=== PATIENT | male | born 1965 | race Two or more races ===

== ENCOUNTER 2016-07-02 09:46 | Inpatient (IN) | payer OTHER ==
[2016-07-02 10:25] VITALS: BMI 24.7
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
[2016-07-02] MEDS ORDERED: diphenhydrAMINE HCL 50 MG CAPSULE PO PRN (12:11)
[2016-07-02] MEDS ORDERED: MENTHOL/PHENOL 1 EACH UD MM PRN (12:11)
[2016-07-02] MEDS ORDERED: hydrOXYzine PAMOATE 25 MG CAPSULE (FP) PO PRN (12:11)
[2016-07-02] MEDS ORDERED: guaiFENesin/D-METHORPHAN HB 10 ML UNIT-DOSE CUPS PO PRN (12:11)
[2016-07-02] MEDS ORDERED: P-EPHED 60MG/TRIPROLIDI 2.5MG TABLET PO PRN (12:11)
[2016-07-02] MEDS ORDERED: MAGNESIUM CITRATE 300 ML BOTTLE PO PRN (12:11)
[2016-07-02] MEDS ORDERED: MAGNESIUM HYDROX 2400MG/30ML ORAL SUSPENSION 30 ML CUP PO PRN (12:11)
[2016-07-02] MEDS ORDERED: chlordiazePOXIDE HCL 25 MG CAPSULE PO PRN (12:11)
[2016-07-02] MEDS ORDERED: NICOTINE POLACRILEX 2 MG GUM BUC PRN (12:11)
[2016-07-02] MEDS ORDERED: MAG HYDROX/AL HYDROX/SIMETH 30 ML UNIT-DOSE CUP PO PRN (12:11)
[2016-07-02] MEDS ORDERED: LOPERAMIDE HCL 2 MG CAPSULE PO PRN (12:11)
[2016-07-02] MEDS ORDERED: IBUPROFEN 400 MG TABLET (FP) PO PRN (12:11)
[2016-07-02] MEDS ORDERED: ACETAMINOPHEN 325 MG TABLET (FP) PO PRN (12:11)
[2016-07-02] MEDS ORDERED: METHADONE HCL 10 MG TABLET (FOR DETOX USE ONLY) PO ONE ×2 (12:25→23:00)
[2016-07-02] MEDS: NICOTINE 14 MG/24 HOURS TOPICAL PATCH TD SCH (13:36)
[2016-07-02 14:21] LABS: HIV 1 & 2 AB NEGATIVE; HIV 1 AGp24 NEGATIVE
[2016-07-02] MEDS: chlordiazePOXIDE HCL 25 MG CAPSULE PO SCH ×2 (17:13→22:35)
[2016-07-02] MEDS: THIAMINE HCL 100 MG TABLET (FP) PO SCH (22:35)
[2016-07-03 04:08] LABS: URINE APPEARANCE CLEAR; URINE BILIRUBIN NEGATIVE (NEGATIVE); URINE BLOOD NEGATIVE (NEGATIVE); URINE COLOR DKYELLOW; URINE GLUCOSE (UA) NEGATIVE (NEGATIVE); URINE KETONE NEGATIVE (NEGATIVE); URINE LEUK ESTERASE NEGATIVE (NEGATIVE); URINE NITRITE NEGATIVE (NEGATIVE); URINE PROTEIN NEGATIVE (NEGATIVE); URINE UROBILINOGEN 2.0 E.U/dl E.U./dl (0.2-1.0)
[2016-07-03] MEDS: chlordiazePOXIDE HCL 25 MG CAPSULE PO SCH ×4 (05:33→22:24)
[2016-07-03] MEDS ORDERED: METHADONE HCL 10 MG TABLET (FOR DETOX USE ONLY) PO SCH (10:00)
[2016-07-03 10:09] LABS: MCHC 33.7 g/dl (32.0-35.9); MEAN CELL VOLUME 86.1 fl (80-96); MEAN PLT VOLUME 10.4 fl (7.5-11.1); PLATELET COUNT 196 K/MM3 (134-434); RDW 13.9 % (11.9-15.9); WHITE BLOOD COUNT 7.5 K/mm3 (4.0-10.0)
--- NOTE | 2016-07-03 10:15 | PN ---
S CIWA - CIWA Score Nausea/Vomitin Muscle Tremors: 3 Anxiety: 3 Agitation: 3 Paroxysmal Sweats: 2 Orientation: 0-Oriented Tacttile Disturbances: 1-Very Mild Itch/Numbness Auditory Disturbances: 1-Very Mild Visual Disturbances: 1-Very Mild Sensitivity Headache: 2-Mild CIWA-Ar Total Score: 19 BHS COWS - Scale Resting Pulse: 0= [place] 80 or Below Sweatin=Flushed/Facial Moisture Restless Observation: 3= Extraneous Movement Pupil Size: 1= Pupils >than Normal Bone or Joint Aches: 2= Severe Diffuse Aches Runny Nose/ Eye Tearin= Runny Nose/Eyes GI Upset > 30mins: 3= Vomiting/Diarrhea Tremor Observation of Outstretched Hands: 1= Tremor [place], Not Seen Yawning Observation: 1= 1-2x During Session Anxiety or Irritability: 2=Irritable/Anxious Goose Flesh Skin: 0=Smooth Skin COWS Score: 17 S Progress Note (SOAP) Subjective: ALERT,IRRITABLE,ANXIUOS,INTERRUPTED SLEEP,PAIN IN THE BODY AND BACK Objective: 07/03/16 10:11 Vital Signs Temperature 98.2 F 07/03/16 09:54 Pulse Rate 68 07/03/16 09:54 Respiratory Rate 18 07/03/16 09:54 Blood Pressure 90/56 07/03/16 09:54 O2 Sat by Pulse Oximetry (%) EKG NSR NORMAL ECG Laboratory Last Values Urine Color Dkyellow 07/03/16 01:00 Urine Appearance Clear 07/03/16 01:00 Urine pH 5.0 (5.0-8.0) 07/03/16 01:00 Ur Specific [place] 1.030 (1.001-1.035) 07/03/16 01:00 Urine Protein Negative (NEGATIVE) 07/03/16 01:00 Urine Glucose (UA) Negative (NEGATIVE) 07/03/16 01:00 Urine Ketones Negative (NEGATIVE) 07/03/16 01:00 Urine Blood Negative (NEGATIVE) 07/03/16 01:00 Urine Nitrite Negative (NEGATIVE) 07/03/16 01:00 Urine Bilirubin Negative (NEGATIVE) 07/03/16 01:00 Urine Urobilinogen 2.0 e.u/dl E.U./dl (0.2-1.0) 07/03/16 01:00 Ur Leukocyte Esterase Negative (NEGATIVE) 07/03/16 01:00 HIV 1&2 Antibody Screen Negative 07/02/16 11:35 HIV P24 Antigen Negative 07/02/16 11:35 Laboratory Last Values Urine Color Dkyellow 07/03/16 01:00 Urine Appearance Clear 07/03/16 01:00 Urine pH 5.0 (5.0-8.0) 07/03/16 01:00 Ur Specific [place] 1.030 (1.001-1.035) 07/03/16 01:00 Urine Protein Negative (NEGATIVE) 07/03/16 01:00 Urine Glucose (UA) Negative (NEGATIVE) 07/03/16 01:00 Urine Ketones Negative (NEGATIVE) 07/03/16 01:00 Urine Blood Negative (NEGATIVE) 07/03/16 01:00 Urine Nitrite Negative (NEGATIVE) 07/03/16 01:00 Urine Bilirubin Negative (NEGATIVE) 07/03/16 01:00 Urine Urobilinogen 2.0 e.u/dl E.U./dl (0.2-1.0) 07/03/16 01:00 Ur Leukocyte Esterase Negative (NEGATIVE) 07/03/16 01:00 HIV 1&2 Antibody Screen Negative 07/02/16 11:35 HIV P24 Antigen Negative 07/02/16 11:35 LABS PENDING Assessment: 07/03/16 10:16 WITHDRAWAL SYMPTOM Plan: CONTINUE DETOX
[2016-07-03 10:26] LABS: ALBUMIN 3.9 g/dl (3.4-5.0); ALK PHOS 76 U/L (45-117); ANION GAP 12 (8-16); BILIRUBIN,TOTAL 0.5 mg/dL (0.2-1.0); CALCIUM 8.6 mg/dL (8.5-10.1); CO2 25 mmol/L (21-32); GLUCOSE,RANDOM 117 mg/dL (74-106); SGOT/AST 18 U/L (15-37); SGPT/ALT 23 U/L (12-78); TOT PROT 7.8 g/dl (6.4-8.2)
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
[2016-07-03] MEDS: PRENATAL VITAMINS W/ FOLIC ACID TABLET (FP) PO SCH (11:10)
[2016-07-03] MEDS: NICOTINE 14 MG/24 HOURS TOPICAL PATCH TD SCH (11:11)
--- NOTE | 2016-07-03 13:44 | EKG ---
Test Reason : Blood Pressure : / mmHG Vent. Rate : 070 BPM Atrial Rate : 070 BPM P-R Int : 138 ms QRS Dur : 086 ms QT Int : 388 ms P-R-T Axes : 068 056 029 degrees QTc Int : 419 ms NORMAL SINUS RHYTHM NORMAL ECG NO PREVIOUS ECGS AVAILABLE Confirmed by BETTIE MCKEON, MORIS ([id number]) on 07/03/2016 1:43:54 PM Referred By: Ricky Gomez Confirmed By:MORIS ALEXANDRE MD
[2016-07-03] MEDS: THIAMINE HCL 100 MG TABLET (FP) PO SCH (22:24)
[2016-07-03] MEDS: QUEtiapine FUMARATE 50 MG TABLET PO SCH (22:24)
[2016-07-03] MEDS: ZOLPIDEM TARTRATE 10 MG TABLET (PARK CARE ONLY) PO PRN (22:25)
[2016-07-04] MEDS: chlordiazePOXIDE HCL 25 MG CAPSULE PO SCH ×2 (05:49→10:34)
[2016-07-04] MEDS: METHADONE HCL 5 MG TABLET (FOR DETOX USE ONLY) PO SCH (10:34)
[2016-07-04] MEDS: PRENATAL VITAMINS W/ FOLIC ACID TABLET (FP) PO SCH (10:34)
[2016-07-04] MEDS: NICOTINE 14 MG/24 HOURS TOPICAL PATCH TD SCH (10:34)
--- NOTE | 2016-07-04 11:10 | PN ---
[facility] CIWA - CIWA Score Nausea/Vomitin-No Nausea/No Vomiting Muscle Tremors: 4-Moderate,w/Arms Extend Anxiety: 3 Agitation: 4-Moderately Restless Paroxysmal Sweats: 3 Orientation: 0-Oriented Tacttile Disturbances: 0-None Auditory Disturbances: 0-None Visual Disturbances: 0-None Headache: 0-None Present CIWA-Ar Total Score: 14 S COWS - Scale Resting Pulse: 1= [place] 81-100 Sweatin=Flushed/Facial Moisture Restless Observation: 1= Difficult to Sit Still Pupil Size: 0= Normal to Room Light Bone or Joint Aches: 2= Severe Diffuse Aches Runny Nose/ Eye Tearin= Nasal Congestion GI Upset > 30mins: 0= None Tremor Observation of Outstretched Hands: 2= Slight Tremor Visible Yawning Observation: 1= 1-2x During Session Anxiety or Irritability: 2=Irritable/Anxious Goose Flesh Skin: 0=Smooth Skin COWS Score: 12 S Progress Note (SOAP) Subjective: irritable agitation anxiety sweats tired Objective: 07/04/16 11:09 Vital Signs Temperature 98.1 F 07/04/16 10:00 Pulse Rate 85 07/04/16 10:00 Respiratory Rate 18 07/04/16 10:00 Blood Pressure 132/63 07/04/16 10:00 O2 Sat by Pulse Oximetry (%) Laboratory Tests 07/02/16 07/03/16 07/03/16 11:35 01:00 06:00 WBC 7.5 RBC 4.71 Hgb 13.7 Hct 40.6 MCV 86.1 MCHC 33.7 RDW 13.9 Plt Count 196 MPV 10.4 Sodium Potassium Chloride Carbon Dioxide Anion Gap BUN Creatinine Creat Clearance w eGFR Random Glucose Calcium Total Bilirubin AST ALT Alkaline Phosphatase Total Protein Albumin Urine Color Dkyellow Urine Appearance Clear Urine pH 5.0 Ur Specific [place] 1.030 Urine Protein Negative Urine Glucose (UA) Negative Urine Ketones Negative Urine Blood Negative Urine Nitrite Negative Urine Bilirubin Negative Urine Urobilinogen 2.0 e.u/dl Ur Leukocyte Esterase Negative RPR Titer HIV 1&2 Antibody Screen Negative HIV P24 Antigen Negative 07/03/16 07/03/16 06:00 06:00 WBC RBC Hgb Hct MCV MCHC RDW Plt Count MPV Sodium 139 Potassium 4.2 Chloride 102 Carbon Dioxide 25 Anion Gap 12 BUN 19 H Creatinine 1.0 Creat Clearance w eGFR > 60 Random Glucose 117 H D Calcium 8.6 Total Bilirubin 0.5 D AST 18 ALT 23 D Alkaline Phosphatase 76 Total Protein 7.8 Albumin 3.9 Urine Color Urine Appearance Urine pH Ur Specific [place] Urine Protein Urine Glucose (UA) Urine Ketones Urine Blood Urine Nitrite Urine Bilirubin Urine Urobilinogen Ur Leukocyte Esterase RPR Titer Nonreactive HIV 1&2 Antibody Screen HIV P24 Antigen awake/alert ambulating no acute distress Assessment: 07/04/16 11:10 withdrawal sx Plan: continue detox increase fluids
[2016-07-04] MEDS: chlordiazePOXIDE 5 MG CAPSULE PO SCH ×2 (17:11→22:32)
[2016-07-04] MEDS: QUEtiapine FUMARATE 50 MG TABLET PO SCH (22:32)
[2016-07-04] MEDS: THIAMINE HCL 100 MG TABLET (FP) PO SCH (22:32)
[2016-07-04] MEDS: ZOLPIDEM TARTRATE 10 MG TABLET (PARK CARE ONLY) PO PRN (22:33)
[2016-07-05] MEDS: chlordiazePOXIDE 5 MG CAPSULE PO SCH ×2 (06:26→10:43)
[2016-07-05] MEDS: METHADONE HCL 5 MG TABLET (FOR DETOX USE ONLY) PO SCH (10:43)
[2016-07-05] MEDS: PRENATAL VITAMINS W/ FOLIC ACID TABLET (FP) PO SCH (10:43)
[2016-07-05] MEDS: NICOTINE 14 MG/24 HOURS TOPICAL PATCH TD SCH (10:43)
--- NOTE | 2016-07-05 12:22 | PN ---
[facility] Progress Note (SOAP) Subjective: feeling better but interrupted sleep. Objective: 07/05/16 12:20 Vital Signs Temperature 96.8 F L 07/05/16 10:22 Pulse Rate 95 H 07/05/16 10:22 Respiratory Rate 18 07/05/16 10:22 Blood Pressure 100/68 07/05/16 10:22 O2 Sat by Pulse Oximetry (%) Laboratory Tests 07/02/16 07/03/16 07/03/16 11:35 01:00 06:00 WBC 7.5 RBC 4.71 Hgb 13.7 Hct 40.6 MCV 86.1 MCHC 33.7 RDW 13.9 Plt Count 196 MPV 10.4 Sodium Potassium Chloride Carbon Dioxide Anion Gap BUN Creatinine Creat Clearance w eGFR Random Glucose Calcium Total Bilirubin AST ALT Alkaline Phosphatase Total Protein Albumin Urine Color Dkyellow Urine Appearance Clear Urine pH 5.0 Ur Specific [place] 1.030 Urine Protein Negative Urine Glucose (UA) Negative Urine Ketones Negative Urine Blood Negative Urine Nitrite Negative Urine Bilirubin Negative Urine Urobilinogen 2.0 e.u/dl Ur Leukocyte Esterase Negative RPR Titer HIV 1&2 Antibody Screen Negative HIV P24 Antigen Negative 07/03/16 07/03/16 06:00 06:00 WBC RBC Hgb Hct MCV MCHC RDW Plt Count MPV Sodium 139 Potassium 4.2 Chloride 102 Carbon Dioxide 25 Anion Gap 12 BUN 19 H Creatinine 1.0 Creat Clearance w eGFR > 60 Random Glucose 117 H D Calcium 8.6 Total Bilirubin 0.5 D AST 18 ALT 23 D Alkaline Phosphatase 76 Total Protein 7.8 Albumin 3.9 Urine Color Urine Appearance Urine pH Ur Specific [place] Urine Protein Urine Glucose (UA) Urine Ketones Urine Blood Urine Nitrite Urine Bilirubin Urine Urobilinogen Ur Leukocyte Esterase RPR Titer Nonreactive HIV 1&2 Antibody Screen HIV P24 Antigen pt aox3 in nad ambulating Assessment: 07/05/16 12:21 withdrawal sx;s Plan: cont. detox increase fluids
[2016-07-05] MEDS: chlordiazePOXIDE HCL 10 MG CAPSULE PO SCH ×2 (17:33→22:30)
[2016-07-05] MEDS: QUEtiapine FUMARATE 50 MG TABLET PO SCH (22:29)
[2016-07-05] MEDS: THIAMINE HCL 100 MG TABLET (FP) PO SCH (22:30)
[2016-07-05] MEDS: ZOLPIDEM TARTRATE 10 MG TABLET (PARK CARE ONLY) PO PRN (22:30)
[2016-07-06] MEDS: chlordiazePOXIDE HCL 10 MG CAPSULE PO SCH ×2 (05:14→10:54)
[2016-07-06 06:19] VITALS: TEMP 97.5
--- NOTE | 2016-07-06 09:03 | PN ---
S Progress Note (SOAP) Subjective: alert,no complaint Objective: 07/06/16 09:02 Vital Signs Temperature 97.5 F L 07/06/16 06:00 Pulse Rate 79 07/06/16 06:00 Respiratory Rate 18 07/06/16 06:00 Blood Pressure 105/71 07/06/16 06:00 O2 Sat by Pulse Oximetry (%) Assessment: 07/06/16 09:02 no withdrawal symptom Plan: stable for discarge today,follow up with after care program as arrangement
--- NOTE | 2016-07-06 09:07 | DS ---
[facility] Detox Discharge Summary Admission Date: 07/02/16 Discharge Date: 07/06/16 - History Present History: Alcohol Dependence, Cocaine Dependence, Opioid Dependence Additional Comments: hepatitis c nicotine dependence Pertinent Past History: follow up with after care program as arrangement - Physical Exam Results Vital Signs: Vital Signs Temperature 97.5 F L 07/06/16 06:00 Pulse Rate 79 07/06/16 06:00 Respiratory Rate 18 07/06/16 06:00 Blood Pressure 105/71 07/06/16 06:00 O2 Sat by Pulse Oximetry (%) Pertinent Admission Physical Exam Findings: withdrawal symptom - Treatment Hospital Course: Detox Protocol Followed, Detoxed Safely, Responded well, Discharged Condition Good, Rehab Referral Accepted Patient has Accepted a Rehab Referral to: [facility] - Medication Discharge Medications: Ambulatory Orders Quetiapine Fumarate [Seroquel -] 150 mg PO HS #30 tablet 09/16/15 Clonazepam [Klonopin] 2 mg PO BID 07/02/16 Quetiapine Fumarate [Seroquel -] 150 mg PO HS #60 tablet 07/03/16 - AMA Did Patient Leave Against Medical Advice: No
[2016-07-06] MEDS ORDERED: METHADONE HCL 10 MG TABLET (FOR DETOX USE ONLY) PO SCH (10:00)
[2016-07-06 10:23] VITALS: BP 121/66; PULSE 103
[2016-07-06] MEDS: PRENATAL VITAMINS W/ FOLIC ACID TABLET (FP) PO SCH (10:53)
[2016-07-06] MEDS: NICOTINE 14 MG/24 HOURS TOPICAL PATCH TD SCH (11:31)
[2016-07-07] MEDS ORDERED: METHADONE HCL 5 MG TABLET (FOR DETOX USE ONLY) PO SCH (06:00)
== END 2016-07-06 11:43 | disposition home or self-care (01) | DRG 773 ==
LOC: YASAS 09:46 → Y6N 11:51
PROVIDERS: ADMIT Internal Medicine Addiction Medicine; ATTEND Internal Medicine Addiction Medicine
PROC: HZ2ZZZZ Detoxification Services for Substance Abuse Treatment (ICD-10-PCS; principal; 2016-07-02)
DX: F11.23 Opioid dependence with withdrawal (principal); F10.230 Alcohol dependence with withdrawal, uncomplicated; F14.20 Cocaine dependence, uncomplicated; F17.210 Nicotine dependence, cigarettes, uncomplicated; F19.24 Other psychoactive substance dependence with psychoactive substance-induced mood disorder; F19.282 Other psychoactive substance dependence with psychoactive substance-induced sleep disorder; F43.10 Post-traumatic stress disorder, unspecified; B18.2 Chronic viral hepatitis C
CPT/HCPCS: 36415; 80053; 81003; 85027; 86593; 87389; 93005; 93010

== ENCOUNTER 2016-12-22 16:34 | Inpatient (IN) | payer OTHER ==
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
[2016-12-22] MEDS ORDERED: chlordiazePOXIDE HCL 25 MG CAPSULE PO ONE (18:13)
[2016-12-22] MEDS ORDERED: METHADONE HCL 10 MG TABLET (FOR DETOX USE ONLY) PO ONE ×2 (18:13→23:00)
[2016-12-22] MEDS ORDERED: MENTHOL/PHENOL 1 EACH UD MM PRN (18:13)
[2016-12-22] MEDS ORDERED: NICOTINE POLACRILEX 2 MG GUM BUC PRN (18:13)
[2016-12-22] MEDS ORDERED: MAGNESIUM CITRATE 300 ML BOTTLE PO PRN (18:13)
[2016-12-22] MEDS ORDERED: IBUPROFEN 400 MG TABLET (FP) PO PRN (18:13)
[2016-12-22] MEDS ORDERED: guaiFENesin/D-METHORPHAN HB 10 ML UNIT-DOSE CUPS PO PRN (18:13)
[2016-12-22] MEDS ORDERED: ACETAMINOPHEN 325 MG TABLET (FP) PO PRN (18:13)
[2016-12-22] MEDS ORDERED: MAGNESIUM HYDROX 2400MG/30ML ORAL SUSPENSION 30 ML CUP PO PRN (18:13)
[2016-12-22] MEDS ORDERED: hydrOXYzine PAMOATE 50 MG CAPSULE (FP) PO PRN (18:13)
[2016-12-22] MEDS ORDERED: diphenhydrAMINE HCL 50 MG CAPSULE PO PRN (18:13)
[2016-12-22] MEDS ORDERED: MAG HYDROX/AL HYDROX/SIMETH 30 ML UNIT-DOSE CUP PO PRN (18:13)
[2016-12-22] MEDS ORDERED: P-EPHED 60MG/TRIPROLIDI 2.5MG TABLET PO PRN (18:13)
[2016-12-22] MEDS ORDERED: LOPERAMIDE HCL 2 MG CAPSULE PO PRN (18:13)
[2016-12-22 18:47] VITALS: BMI 24.4
[2016-12-22] MEDS ORDERED: METHADONE HCL 10 MG TABLET (FOR DETOX USE ONLY) ONE (20:45)
[2016-12-22] MEDS: chlordiazePOXIDE HCL 25 MG CAPSULE PO PRN (20:47)
[2016-12-22] MEDS: NICOTINE 14 MG/24 HOURS TOPICAL PATCH TD SCH (20:49)
[2016-12-22] MEDS: chlordiazePOXIDE HCL 25 MG CAPSULE PO SCH (22:16)
[2016-12-22] MEDS: THIAMINE HCL 100 MG TABLET (FP) PO SCH (22:16)
[2016-12-23] MEDS: chlordiazePOXIDE HCL 25 MG CAPSULE PO SCH ×4 (05:41→22:13)
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
[2016-12-23] MEDS ORDERED: METHADONE HCL 10 MG TABLET (FOR DETOX USE ONLY) PO SCH (10:00)
[2016-12-23] MEDS: PRENATAL VITAMINS W/ FOLIC ACID TABLET (FP) PO SCH (10:15)
[2016-12-23] MEDS: NICOTINE 14 MG/24 HOURS TOPICAL PATCH TD SCH (10:16)
[2016-12-23 10:36] LABS: URINE APPEARANCE CLOUDY; URINE BILIRUBIN NEGATIVE (NEGATIVE); URINE BLOOD NEGATIVE (NEGATIVE); URINE COLOR DKYELLOW; URINE GLUCOSE (UA) NEGATIVE (NEGATIVE); URINE KETONE TRACE (NEGATIVE); URINE LEUK ESTERASE TRACE (NEGATIVE); URINE NITRITE NEGATIVE (NEGATIVE); URINE PROTEIN NEGATIVE (NEGATIVE)
[2016-12-23 10:37] LABS: MCH 28.8 pg (25.7-33.7); MEAN CELL VOLUME 84.7 fl (80-96); PLATELET COUNT 202 K/MM3 (134-434); RDW 13.7 % (11.9-15.9); WHITE BLOOD COUNT 5.5 K/mm3 (4.0-10.0)
[2016-12-23 10:41] LABS: CALCIUM OXALATE CRYSTALS RARE /hpf (NONE SEEN); URINE MUCUS RARE; URINE RBC <1 /hpf (0-3); URINE WBC 4 /hpf (3-5)
[2016-12-23 10:48] LABS: ALBUMIN 3.5 g/dl (3.4-5.0); ANION GAP 6 (8-16); CALCIUM 8.5 mg/dL (8.5-10.1); CO2 27 mmol/L (21-32); GLUCOSE,RANDOM 127 mg/dL (74-106)
[2016-12-23 10:53] LABS: ALK PHOS 74 U/L (45-117); BILIRUBIN,TOTAL 0.5 mg/dL (0.2-1.0); SGOT/AST 16 U/L (15-37); SGPT/ALT 26 U/L (12-78); TOT PROT 6.9 g/dl (6.4-8.2)
--- NOTE | 2016-12-23 17:15 | PN ---
S CIWA - CIWA Score Nausea/Vomitin Muscle Tremors: 4-Moderate,w/Arms Extend Anxiety: 4-Mod. Anxious/Guarded Agitation: 4-Moderately Restless Paroxysmal Sweats: 3 Orientation: 0-Oriented Tacttile Disturbances: 1-Very Mild Itch/Numbness Auditory Disturbances: 0-None Visual Disturbances: 0-None Headache: 1-Very Mild CIWA-Ar Total Score: 20 BHS COWS - Scale Resting Pulse: 0= [place] 80 or Below Sweatin=Flushed/Facial Moisture Restless Observation: 3= Extraneous Movement Pupil Size: 0= Normal to Room Light Bone or Joint Aches: 2= Severe Diffuse Aches Runny Nose/ Eye Tearin= Runny Nose/Eyes GI Upset > 30mins: 2= Nausea/Diarrhea Tremor Observation of Outstretched Hands: 2= Slight Tremor Visible Yawning Observation: 1= 1-2x During Session Anxiety or Irritability: 2=Irritable/Anxious Goose Flesh Skin: 0=Smooth Skin COWS Score: 16 S Progress Note (SOAP) Subjective: Sweating, chills, tremor, stomach ache, interrupted sleep Objective: 12/23/16 17:12 Last Vital Signs Temp Pulse Resp BP Pulse Ox 97.0 F L 70 18 95/54 12/23/16 13:38 12/23/16 13:38 12/23/16 13:38 12/23/16 13:38 B/P noted (runs low) Laboratory Tests 12/23/16 12/23/16 12/23/16 07:30 07:30 07:30 WBC 5.5 RBC 4.10 Hgb 11.8 D Hct 34.7 L MCV 84.7 MCH 28.8 MCHC 34.0 RDW 13.7 Plt Count 202 MPV 10.0 Sodium 138 Potassium 3.7 Chloride 105 Carbon Dioxide 27 Anion Gap 6 L BUN 20 H Creatinine 1.0 Creat Clearance w eGFR > 60 Random Glucose 127 H Calcium 8.5 Total Bilirubin 0.5 AST 16 ALT 26 Alkaline Phosphatase 74 Total Protein 6.9 Albumin 3.5 Urine Color Urine Appearance Urine pH Ur Specific [place] Urine Protein Urine Glucose (UA) Urine Ketones Urine Blood Urine Nitrite Urine Bilirubin Urine Urobilinogen Urine RBC Urine WBC Calcium Oxalate Crystal Urine Mucus RPR Titer Nonreactive 12/23/16 07:30 WBC RBC Hgb Hct MCV MCH MCHC RDW Plt Count MPV Sodium Potassium Chloride Carbon Dioxide Anion Gap BUN Creatinine Creat Clearance w eGFR Random Glucose Calcium Total Bilirubin AST ALT Alkaline Phosphatase Total Protein Albumin Urine Color Dkyellow Urine Appearance Cloudy Urine pH 5.0 Ur Specific [place] 1.025 Urine Protein Negative Urine Glucose (UA) Negative Urine Ketones Trace H Urine Blood Negative Urine Nitrite Negative Urine Bilirubin Negative Urine Urobilinogen 2.0 Urine RBC <1 Urine WBC 4 Calcium Oxalate Crystal Rare Urine Mucus Rare RPR Titer Labs noted: bun 20, serum glucose 127 Assessment: 12/23/16 17:13 Withdrawal symptoms Noted with hypotension, mild azotemia and hyperglycemia Plan: Continue detox Hypotension: asymptomatic, encouraged to drink lots of water, continue to monitor Mild azotemia: encouraged to drink lots of water Hyperglycemia: repeat bmp and send HbA1c to rule out DM
[2016-12-23] MEDS: QUEtiapine FUMARATE 50 MG TABLET PO SCH (22:11)
[2016-12-23] MEDS: THIAMINE HCL 100 MG TABLET (FP) PO SCH (22:12)
[2016-12-24] MEDS: chlordiazePOXIDE HCL 25 MG CAPSULE PO SCH ×3 (05:24→17:19)
[2016-12-24] MEDS: chlordiazePOXIDE HCL 25 MG CAPSULE PO PRN (07:34)
[2016-12-24 09:59] LABS: ANION GAP 5 (8-16); CO2 28 mmol/L (21-32); GLUCOSE,RANDOM 114 mg/dL (74-106)
[2016-12-24 10:01] LABS: CREATININE 0.9 mg/dL (0.7-1.3)
[2016-12-24] MEDS: NICOTINE 14 MG/24 HOURS TOPICAL PATCH TD SCH (10:15)
[2016-12-24] MEDS: METHADONE HCL 5 MG TABLET (FOR DETOX USE ONLY) PO SCH (10:15)
[2016-12-24] MEDS: PRENATAL VITAMINS W/ FOLIC ACID TABLET (FP) PO SCH (10:15)
--- NOTE | 2016-12-24 11:40 | PN ---
S CIWA - CIWA Score Nausea/Vomitin Muscle Tremors: 4-Moderate,w/Arms Extend Anxiety: 4-Mod. Anxious/Guarded Agitation: 2 Paroxysmal Sweats: 2 Orientation: 0-Oriented Tacttile Disturbances: 3-Moderate Itch/Numb/Burn Auditory Disturbances: 2-Mild Harshness/Frighten Visual Disturbances: 0-None Headache: 0-None Present CIWA-Ar Total Score: 19 BHS COWS - Scale Resting Pulse: 0= [place] 80 or Below Sweatin= Chills/Flushing Restless Observation: 1= Difficult to Sit Still Pupil Size: 0= Normal to Room Light Bone or Joint Aches: 1= Mild Discomfort Runny Nose/ Eye Tearin= Runny Nose/Eyes GI Upset > 30mins: 0= None Tremor Observation of Outstretched Hands: 2= Slight Tremor Visible Yawning Observation: 1= 1-2x During Session Anxiety or Irritability: 2=Irritable/Anxious Goose Flesh Skin: 3=Piloerection COWS Score: 13 S Progress Note (SOAP) Subjective: Anxious, Fatigue, Tremors. Objective: PT. A & O X 3, OBSERVED AMBULATING ON UNIT. NO ACUTE DISTRESS. 12/24/16 11:38 Vital Signs Temperature 96.5 F L 12/24/16 09:36 Pulse Rate 64 12/24/16 09:36 Respiratory Rate 20 12/24/16 09:36 Blood Pressure 102/59 12/24/16 09:36 O2 Sat by Pulse Oximetry (%) Laboratory Tests 12/23/16 12/23/16 12/23/16 07:30 07:30 07:30 WBC 5.5 RBC 4.10 Hgb 11.8 D Hct 34.7 L MCV 84.7 MCH 28.8 MCHC 34.0 RDW 13.7 Plt Count 202 MPV 10.0 Sodium 138 Potassium 3.7 Chloride 105 Carbon Dioxide 27 Anion Gap 6 L BUN 20 H Creatinine 1.0 Creat Clearance w eGFR > 60 Random Glucose 127 H Hemoglobin A1c % Calcium 8.5 Total Bilirubin 0.5 AST 16 ALT 26 Alkaline Phosphatase 74 Total Protein 6.9 Albumin 3.5 Urine Color Urine Appearance Urine pH Ur Specific [place] Urine Protein Urine Glucose (UA) Urine Ketones Urine Blood Urine Nitrite Urine Bilirubin Urine Urobilinogen Urine RBC Urine WBC Calcium Oxalate Crystal Urine Mucus RPR Titer Nonreactive 12/23/16 12/24/16 12/24/16 07:30 07:00 07:00 WBC RBC Hgb Hct MCV MCH MCHC RDW Plt Count MPV Sodium 140 Potassium 4.0 Chloride 107 Carbon Dioxide 28 Anion Gap 5 L BUN 19 H Creatinine 0.9 Creat Clearance w eGFR Random Glucose 114 H Hemoglobin A1c % 4.9 Calcium 9.0 Total Bilirubin AST ALT Alkaline Phosphatase Total Protein Albumin Urine Color Dkyellow Urine Appearance Cloudy Urine pH 5.0 Ur Specific [place] 1.025 Urine Protein Negative Urine Glucose (UA) Negative Urine Ketones Trace H Urine Blood Negative Urine Nitrite Negative Urine Bilirubin Negative Urine Urobilinogen 2.0 Urine RBC <1 Urine WBC 4 Calcium Oxalate Crystal Rare Urine Mucus Rare RPR Titer LABS NOTED. RESULTS OF BMP AND HGB A1C NOTED. 12/24/16 12:12 Assessment: 12/24/16 11:39 WITHDRAWAL SYMPTOMS. Plan: CONTINUE DETOX. INCREASE DAILY PO FLUID INTAKE.
--- NOTE | 2016-12-24 17:01 | EKG ---
Test Reason : Blood Pressure : / mmHG Vent. Rate : 056 BPM Atrial Rate : 056 BPM P-R Int : 144 ms QRS Dur : 086 ms QT Int : 426 ms P-R-T Axes : 058 054 023 degrees QTc Int : 411 ms SINUS BRADYCARDIA OTHERWISE NORMAL ECG WHEN COMPARED WITH ECG OF 02-JUL-2016 12:47, NO SIGNIFICANT CHANGE WAS FOUND Confirmed by MORIS ALEXANDRE MD ([id number]) on 12/24/2016 5:01:27 PM Referred By: Confirmed By:MORIS ALEXANDRE MD
[2016-12-24] MEDS: THIAMINE HCL 100 MG TABLET (FP) PO SCH (22:12)
[2016-12-24] MEDS: QUEtiapine FUMARATE 50 MG TABLET PO SCH (22:12)
[2016-12-24] MEDS: chlordiazePOXIDE 5 MG CAPSULE PO SCH (22:12)
[2016-12-25] MEDS: chlordiazePOXIDE 5 MG CAPSULE PO SCH ×3 (05:35→17:08)
[2016-12-25] MEDS: NICOTINE 14 MG/24 HOURS TOPICAL PATCH TD SCH (10:15)
[2016-12-25] MEDS: PRENATAL VITAMINS W/ FOLIC ACID TABLET (FP) PO SCH (10:56)
[2016-12-25] MEDS: METHADONE HCL 5 MG TABLET (FOR DETOX USE ONLY) PO SCH (10:56)
--- NOTE | 2016-12-25 13:03 | PN ---
BHS Progress Note (SOAP) Subjective: Anxious, Sweating. Objective: PT. A & O X 3, OBSERVED AMBULATING ON UNIT. NO ACUTE DISTRESS. 12/25/16 12:59 Vital Signs Temperature 97.1 F L 12/25/16 09:05 Pulse Rate 84 12/25/16 09:05 Respiratory Rate 18 12/25/16 09:05 Blood Pressure 101/58 12/25/16 09:05 O2 Sat by Pulse Oximetry (%) Laboratory Tests 12/23/16 12/23/16 12/23/16 07:30 07:30 07:30 WBC 5.5 RBC 4.10 Hgb 11.8 D Hct 34.7 L MCV 84.7 MCH 28.8 MCHC 34.0 RDW 13.7 Plt Count 202 MPV 10.0 Sodium 138 Potassium 3.7 Chloride 105 Carbon Dioxide 27 Anion Gap 6 L BUN 20 H Creatinine 1.0 Creat Clearance w eGFR > 60 Random Glucose 127 H Hemoglobin A1c % Calcium 8.5 Total Bilirubin 0.5 AST 16 ALT 26 Alkaline Phosphatase 74 Total Protein 6.9 Albumin 3.5 Urine Color Urine Appearance Urine pH Ur Specific [place] Urine Protein Urine Glucose (UA) Urine Ketones Urine Blood Urine Nitrite Urine Bilirubin Urine Urobilinogen Urine RBC Urine WBC Calcium Oxalate Crystal Urine Mucus RPR Titer Nonreactive 12/23/16 12/24/16 12/24/16 07:30 07:00 07:00 WBC RBC Hgb Hct MCV MCH MCHC RDW Plt Count MPV Sodium 140 Potassium 4.0 Chloride 107 Carbon Dioxide 28 Anion Gap 5 L BUN 19 H Creatinine 0.9 Creat Clearance w eGFR Random Glucose 114 H Hemoglobin A1c % 4.9 Calcium 9.0 Total Bilirubin AST ALT Alkaline Phosphatase Total Protein Albumin Urine Color Dkyellow Urine Appearance Cloudy Urine pH 5.0 Ur Specific [place] 1.025 Urine Protein Negative Urine Glucose (UA) Negative Urine Ketones Trace H Urine Blood Negative Urine Nitrite Negative Urine Bilirubin Negative Urine Urobilinogen 2.0 Urine RBC <1 Urine WBC 4 Calcium Oxalate Crystal Rare Urine Mucus Rare RPR Titer LABS NOTED. Assessment: 12/25/16 13:02 WITHDRAWAL SYMPTOMS. Plan: CONTINUE DETOX.
[2016-12-25] MEDS: QUEtiapine FUMARATE 50 MG TABLET PO SCH (22:42)
[2016-12-25] MEDS: THIAMINE HCL 100 MG TABLET (FP) PO SCH (22:42)
[2016-12-25] MEDS: chlordiazePOXIDE HCL 10 MG CAPSULE PO SCH (22:43)
[2016-12-26] MEDS: chlordiazePOXIDE HCL 10 MG CAPSULE PO SCH ×3 (05:50→17:27)
[2016-12-26] MEDS ORDERED: METHADONE HCL 10 MG TABLET (FOR DETOX USE ONLY) PO SCH (10:00)
[2016-12-26] MEDS: NICOTINE 14 MG/24 HOURS TOPICAL PATCH TD SCH (10:52)
[2016-12-26] MEDS: PRENATAL VITAMINS W/ FOLIC ACID TABLET (FP) PO SCH (10:52)
--- NOTE | 2016-12-26 15:53 | PN ---
BHS Progress Note (SOAP) Subjective: Tremors, Anxious. Objective: PT. A & O X 3, OBSERVED AMBULATING ON UNIT. NO ACUTE DISTRESS. 12/26/16 15:51 Vital Signs Temperature 97.2 F L 12/26/16 14:05 Pulse Rate 76 12/26/16 14:05 Respiratory Rate 18 12/26/16 14:05 Blood Pressure 104/70 12/26/16 14:05 O2 Sat by Pulse Oximetry (%) Laboratory Tests 12/23/16 12/23/16 12/23/16 07:30 07:30 07:30 WBC 5.5 RBC 4.10 Hgb 11.8 D Hct 34.7 L MCV 84.7 MCH 28.8 MCHC 34.0 RDW 13.7 Plt Count 202 MPV 10.0 Sodium 138 Potassium 3.7 Chloride 105 Carbon Dioxide 27 Anion Gap 6 L BUN 20 H Creatinine 1.0 Creat Clearance w eGFR > 60 Random Glucose 127 H Hemoglobin A1c % Calcium 8.5 Total Bilirubin 0.5 AST 16 ALT 26 Alkaline Phosphatase 74 Total Protein 6.9 Albumin 3.5 Urine Color Urine Appearance Urine pH Ur Specific [place] Urine Protein Urine Glucose (UA) Urine Ketones Urine Blood Urine Nitrite Urine Bilirubin Urine Urobilinogen Urine RBC Urine WBC Calcium Oxalate Crystal Urine Mucus RPR Titer Nonreactive 12/23/16 12/24/16 12/24/16 07:30 07:00 07:00 WBC RBC Hgb Hct MCV MCH MCHC RDW Plt Count MPV Sodium 140 Potassium 4.0 Chloride 107 Carbon Dioxide 28 Anion Gap 5 L BUN 19 H Creatinine 0.9 Creat Clearance w eGFR Random Glucose 114 H Hemoglobin A1c % 4.9 Calcium 9.0 Total Bilirubin AST ALT Alkaline Phosphatase Total Protein Albumin Urine Color Dkyellow Urine Appearance Cloudy Urine pH 5.0 Ur Specific [place] 1.025 Urine Protein Negative Urine Glucose (UA) Negative Urine Ketones Trace H Urine Blood Negative Urine Nitrite Negative Urine Bilirubin Negative Urine Urobilinogen 2.0 Urine RBC <1 Urine WBC 4 Calcium Oxalate Crystal Rare Urine Mucus Rare RPR Titer LABS NOTED. Assessment: 12/26/16 15:51 WITHDRAWAL SYMPTOMS. Plan: CONTINUE DETOX. INCREASE DAILY PO FLUID INTAKE.
[2016-12-26] MEDS: THIAMINE HCL 100 MG TABLET (FP) PO SCH (22:16)
[2016-12-26] MEDS: QUEtiapine FUMARATE 50 MG TABLET PO SCH (22:17)
[2016-12-27] MEDS ORDERED: METHADONE HCL 5 MG TABLET (FOR DETOX USE ONLY) PO SCH (06:00)
[2016-12-27 06:18] VITALS: BP 110/68; PULSE 69; TEMP 97
--- NOTE | 2016-12-27 12:48 | DS ---
[facility] Detox Discharge Summary Admission Date: 12/22/16 Discharge Date: 12/27/16 - History Present History: Alcohol Dependence, Cocaine Dependence, Opioid Dependence Pertinent Past History: Hep C - Physical Exam Results Vital Signs: Vital Signs Temperature 97 F L 12/27/16 06:18 Pulse Rate 69 12/27/16 06:18 Respiratory Rate 16 12/27/16 06:18 Blood Pressure 110/68 12/27/16 06:18 O2 Sat by Pulse Oximetry (%) Pertinent Admission Physical Exam Findings: Withdrawal sx. Laboratory Last Values WBC 5.5 K/mm3 (4.0-10.0) 12/23/16 07:30 RBC 4.10 M/mm3 (4.00-5.60) 12/23/16 07:30 Hgb 11.8 GM/dL (11.7-16.9) D 12/23/16 07:30 Hct 34.7 % (35.4-49) L 12/23/16 07:30 MCV 84.7 fl (80-96) 12/23/16 07:30 MCH 28.8 pg (25.7-33.7) 12/23/16 07:30 MCHC 34.0 g/dl (32.0-35.9) 12/23/16 07:30 RDW 13.7 % (11.9-15.9) 12/23/16 07:30 Plt Count 202 K/MM3 (134-434) 12/23/16 07:30 MPV 10.0 fl (7.5-11.1) 12/23/16 07:30 Sodium 140 mmol/L (136-145) 12/24/16 07:00 Potassium 4.0 mmol/L (3.5-5.1) 12/24/16 07:00 Chloride 107 mmol/L (98-107) 12/24/16 07:00 Carbon Dioxide 28 mmol/L (21-32) 12/24/16 07:00 Anion Gap 5 (8-16) L 12/24/16 07:00 BUN 19 mg/dL (7-18) H 12/24/16 07:00 Creatinine 0.9 mg/dL (0.7-1.3) 12/24/16 07:00 Creat Clearance w eGFR > 60 (>60) 12/23/16 07:30 Random Glucose 114 mg/dL (74-106) H 12/24/16 07:00 Hemoglobin A1c % 4.9 % (4.8-6.0) 12/24/16 07:00 Calcium 9.0 mg/dL (8.5-10.1) 12/24/16 07:00 Total Bilirubin 0.5 mg/dL (0.2-1.0) 12/23/16 07:30 AST 16 U/L (15-37) 12/23/16 07:30 ALT 26 U/L (12-78) 12/23/16 07:30 Alkaline Phosphatase 74 U/L (45-117) 12/23/16 07:30 Total Protein 6.9 g/dl (6.4-8.2) 12/23/16 07:30 Albumin 3.5 g/dl (3.4-5.0) 12/23/16 07:30 Urine Color Dkyellow 12/23/16 07:30 Urine Appearance Cloudy 12/23/16 07:30 Urine pH 5.0 (5.0-8.0) 12/23/16 07:30 Ur Specific [place] 1.025 (1.005-1.025) 12/23/16 07:30 Urine Protein Negative (NEGATIVE) 12/23/16 07:30 Urine Glucose (UA) Negative (NEGATIVE) 12/23/16 07:30 Urine Ketones Trace (NEGATIVE) H 12/23/16 07:30 Urine Blood Negative (NEGATIVE) 12/23/16 07:30 Urine Nitrite Negative (NEGATIVE) 12/23/16 07:30 Urine Bilirubin Negative (NEGATIVE) 12/23/16 07:30 Urine Urobilinogen 2.0 mg/dL (0.2-1.0) 12/23/16 07:30 Urine RBC <1 /hpf (0-3) 12/23/16 07:30 Urine WBC 4 /hpf (3-5) 12/23/16 07:30 Calcium Oxalate Crystal Rare /hpf (NONE SEEN) 12/23/16 07:30 Urine Mucus Rare 12/23/16 07:30 RPR Titer Nonreactive (NONREACTIVE) 12/23/16 07:30 labs noted - Treatment Hospital Course: Detox Protocol Followed, Detoxed Safely, Responded well, Discharged Condition Good, Rehab Referral Accepted Patient has Accepted a Rehab Referral to: [facility] - Medication Discharge Medications: Ambulatory Orders Quetiapine Fumarate [Seroquel -] 150 mg PO HS #30 tablet 09/16/15 Quetiapine Fumarate [Seroquel -] 150 mg PO HS #60 tablet 07/03/16 Quetiapine Fumarate [Seroquel -] 150 mg PO HS #90 tablet 12/23/16 - Diagnosis (1) Alcohol dependence with uncomplicated withdrawal Status: Acute (2) Bipolar disorder Status: Acute (3) Nicotine dependence Status: Acute Qualifiers: Nicotine product type: cigarettes Substance use status: in withdrawal Qualified Code(s): F17.213 - Nicotine dependence, cigarettes, with withdrawal (4) Opioid dependence with withdrawal Status: Acute (5) Substance induced mood disorder Status: Acute (6) Hepatitis C Status: Chronic Qualifiers: Viral hepatitis chronicity: chronic Hepatic coma status: without hepatic coma Qualified Code(s): B18.2 - Chronic viral hepatitis C (7) Post traumatic stress disorder (PTSD) Status: Chronic - AMA Did Patient Leave Against Medical Advice: No
== END 2016-12-27 09:17 | disposition home or self-care (01) | DRG 773 ==
LOC: YASAS 16:34 → Y3N 20:08
PROVIDERS: ADMIT Internal Medicine; ATTEND Internal Medicine
PROC: HZ2ZZZZ Detoxification Services for Substance Abuse Treatment (ICD-10-PCS; principal; 2016-12-22)
DX: F11.23 Opioid dependence with withdrawal (principal); F13.230 Sedative, hypnotic or anxiolytic dependence with withdrawal, uncomplicated; F10.230 Alcohol dependence with withdrawal, uncomplicated; F14.20 Cocaine dependence, uncomplicated; F17.213 Nicotine dependence, cigarettes, with withdrawal; F19.24 Other psychoactive substance dependence with psychoactive substance-induced mood disorder; F31.9 Bipolar disorder, unspecified; F43.10 Post-traumatic stress disorder, unspecified; B18.2 Chronic viral hepatitis C
CPT/HCPCS: 36415; 80048; 80053; 81003; 81015; 83036; 85027; 86593; 93005; 93010

== ENCOUNTER 2017-05-20 12:20 | Inpatient (IN) | payer OTHER ==
[2017-05-20 13:01] VITALS: BMI 27.3
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
[2017-05-20] MEDS ORDERED: LOPERAMIDE HCL 2 MG CAPSULE PO PRN (15:37)
[2017-05-20] MEDS ORDERED: IBUPROFEN 400 MG TABLET (FP) PO PRN (15:37)
[2017-05-20] MEDS ORDERED: ACETAMINOPHEN 325 MG TABLET (FP) PO PRN (15:37)
[2017-05-20] MEDS ORDERED: MENTHOL/PHENOL 1 EACH UD MM PRN (15:37)
[2017-05-20] MEDS ORDERED: guaiFENesin/D-METHORPHAN HB 10 ML UNIT-DOSE CUPS PO PRN (15:37)
[2017-05-20] MEDS ORDERED: MAGNESIUM CITRATE 300 ML BOTTLE PO PRN (15:37)
[2017-05-20] MEDS ORDERED: P-EPHED 60MG/TRIPROLIDI 2.5MG TABLET PO PRN (15:37)
[2017-05-20] MEDS ORDERED: BACITRACIN 0.9 GM PACKET TP ONE (17:45)
[2017-05-20] MEDS: GABAPENTIN 100 MG CAPSULE (FP) PO SCH (21:14)
[2017-05-20] MEDS: THIAMINE HCL 100 MG TABLET (FP) PO SCH (21:14)
[2017-05-20] MEDS: METHOCARBAMOL 500 MG TABLET PO SCH (21:14)
[2017-05-20 23:11] LABS: URINE APPEARANCE CLEAR; URINE BILIRUBIN NEGATIVE (NEGATIVE); URINE BLOOD NEGATIVE (NEGATIVE); URINE COLOR LTYELLOW; URINE GLUCOSE (UA) NEGATIVE (NEGATIVE); URINE KETONE NEGATIVE (NEGATIVE); URINE LEUK ESTERASE NEGATIVE (NEGATIVE); URINE NITRITE NEGATIVE (NEGATIVE); URINE PROTEIN NEGATIVE (NEGATIVE); URINE UROBILINOGEN NEGATIVE mg/dL (0.2-1.0)
[2017-05-21] MEDS: METHOCARBAMOL 500 MG TABLET PO SCH ×3 (06:37→21:10)
[2017-05-21] MEDS: GABAPENTIN 100 MG CAPSULE (FP) PO SCH ×3 (06:37→21:10)
[2017-05-21] MEDS: PRENATAL VITAMINS W/ FOLIC ACID TABLET (FP) PO SCH (09:46)
[2017-05-21] MEDS: NICOTINE 14 MG/24 HOURS TOPICAL PATCH TD SCH (09:46)
[2017-05-21 09:54] LABS: HEMATOCRIT 42.4 % (35.4-49); HEMOGLOBIN 14.1 GM/dL (11.7-16.9); MCH 28.2 pg (25.7-33.7); MCHC 33.2 g/dl (32.0-35.9); MEAN PLT VOLUME 10.5 fl (7.5-11.1); PLATELET COUNT 179 K/MM3 (134-434); RBC 4.99 M/mm3 (4.00-5.60); WHITE BLOOD COUNT 4.9 K/mm3 (4.0-10.0)
[2017-05-21 10:29] LABS: CALCIUM 8.9 mg/dL (8.5-10.1); CHLORIDE 103 mmol/L (98-107); POTASSIUM 4.6 mmol/L (3.5-5.1); SGOT/AST 52 U/L (15-37); SGPT/ALT 86 U/L (12-78); SODIUM 140 mmol/L (136-145)
[2017-05-21 10:32] LABS: ALBUMIN 3.8 g/dl (3.4-5.0); ALK PHOS 69 U/L (45-117); ANION GAP 7 (8-16); BILIRUBIN,TOTAL 0.5 mg/dL (0.2-1.0); BLOOD UREA NITROGEN 19 mg/dL (7-18); CO2 30 mmol/L (21-32); CREATININE 0.9 mg/dL (0.7-1.3); GLUCOSE,RANDOM 74 mg/dL (74-106); TOT PROT 7.6 g/dl (6.4-8.2)
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
--- NOTE | 2017-05-21 13:57 | EKG ---
Test Reason : Blood Pressure : / mmHG Vent. Rate : 066 BPM Atrial Rate : 066 BPM P-R Int : 142 ms QRS Dur : 084 ms QT Int : 394 ms P-R-T Axes : -02 009 057 degrees QTc Int : 413 ms NORMAL SINUS RHYTHM POSSIBLE INFERIOR INFARCT , AGE UNDETERMINED ABNORMAL ECG WHEN COMPARED WITH ECG OF 12-FEB-2017 15:33, BORDERLINE CRITERIA FOR INFERIOR INFARCT ARE NOW PRESENT Confirmed by MD Izabella, Christian ([id number]) on 05/21/2017 1:57:31 PM Referred By: Confirmed By:Christian Parekh MD
[2017-05-21] MEDS: QUEtiapine FUMARATE 50 MG TABLET PO SCH (21:10)
[2017-05-21] MEDS: THIAMINE HCL 100 MG TABLET (FP) PO SCH (21:10)
[2017-05-22] MEDS: METHOCARBAMOL 500 MG TABLET PO SCH ×3 (06:15→21:14)
[2017-05-22] MEDS: GABAPENTIN 100 MG CAPSULE (FP) PO SCH (06:15)
[2017-05-22] MEDS: PRENATAL VITAMINS W/ FOLIC ACID TABLET (FP) PO SCH (10:15)
[2017-05-22] MEDS: NICOTINE 14 MG/24 HOURS TOPICAL PATCH TD SCH (10:16)
--- NOTE | 2017-05-22 11:51 | PN ---
[facility] Progress Note (SOAP) Subjective: c/o protracted opioid withdrawal sx would like to start subxooeon maintenance treatment Objective: 05/22/17 11:50 Vital Signs - 24 hr 05/22/17 05/22/17 05/22/17 00:30 03:30 06:49 Temperature 97.2 F L Pulse Rate 80 Respiratory 16 16 18 Rate Blood Pressure 106/68 Laboratory Tests 05/20/17 05/21/17 05/21/17 22:50 07:30 07:30 WBC 4.9 D RBC 4.99 Hgb 14.1 Hct 42.4 MCV 85.0 MCH 28.2 MCHC 33.2 RDW 14.0 Plt Count 179 D MPV 10.5 Sodium 140 Potassium 4.6 Chloride 103 Carbon Dioxide 30 Anion Gap 7 L BUN 19 H Creatinine 0.9 Creat Clearance w eGFR > 60 Random Glucose 74 Calcium 8.9 Total Bilirubin 0.5 AST 52 H ALT 86 H D Alkaline Phosphatase 69 D Total Protein 7.6 Albumin 3.8 Urine Color Ltyellow Urine Appearance Clear Urine pH 8.0 D Ur Specific [place] 1.010 Urine Protein Negative Urine Glucose (UA) Negative Urine Ketones Negative Urine Blood Negative Urine Nitrite Negative Urine Bilirubin Negative Urine Urobilinogen Negative Ur Leukocyte Esterase Negative RPR Titer 05/21/17 07:30 WBC RBC Hgb Hct MCV MCH MCHC RDW Plt Count MPV Sodium Potassium Chloride Carbon Dioxide Anion Gap BUN Creatinine Creat Clearance w eGFR Random Glucose Calcium Total Bilirubin AST ALT Alkaline Phosphatase Total Protein Albumin Urine Color Urine Appearance Urine pH Ur Specific [place] Urine Protein Urine Glucose (UA) Urine Ketones Urine Blood Urine Nitrite Urine Bilirubin Urine Urobilinogen Ur Leukocyte Esterase RPR Titer Nonreactive anxiety, fatigue, withdrwal sx noted Assessment: 05/22/17 11:51 protracted opioid withdrwal craVING, DESIRE TO JEROD START mat W SUBOXONE PATIENT WILL SCHEDULE APPT FOR OUTPT AFTER DISCHARGE WHEN APPT SCHEDULED TITRATE DOSE TO EFFECT, SYMPOTMATIC RELIFEF ALSO ORDERED.
[2017-05-22] MEDS: cloNIDine HCL 0.1 MG TABLET PO SCH ×2 (12:52→21:14)
[2017-05-22] MEDS: NAPROXEN 500 MG TABLET (FP) PO SCH ×2 (12:52→21:14)
[2017-05-22] MEDS: PANTOPRAZOLE 40 MG TABLET (FP) PO SCH (12:52)
[2017-05-22] MEDS: BUPRENORPHINE/NALOXONE 2 MG/0.5 MG FILM PACKET SL SCH (12:53)
[2017-05-22] MEDS: CYCLOBENZAPRINE HCL 10 MG TABLET (FP) PO SCH ×2 (13:00→21:14)
[2017-05-22] MEDS: GABAPENTIN 300 MG CAPSULE (FP) PO SCH ×2 (13:00→21:14)
[2017-05-22] MEDS: QUEtiapine FUMARATE 50 MG TABLET PO SCH (21:14)
[2017-05-22] MEDS: THIAMINE HCL 100 MG TABLET (FP) PO SCH (21:14)
[2017-05-22] MEDS: NICOTINE POLACRILEX 2 MG GUM BC PRN (21:15)
[2017-05-23] MEDS: CYCLOBENZAPRINE HCL 10 MG TABLET (FP) PO SCH ×3 (06:09→22:11)
[2017-05-23] MEDS: GABAPENTIN 300 MG CAPSULE (FP) PO SCH ×3 (06:09→21:18)
[2017-05-23] MEDS: METHOCARBAMOL 500 MG TABLET PO SCH ×2 (06:09→14:13)
[2017-05-23] MEDS: PANTOPRAZOLE 40 MG TABLET (FP) PO SCH (10:06)
[2017-05-23] MEDS: BUPRENORPHINE/NALOXONE 2 MG/0.5 MG FILM PACKET SL SCH (10:06)
[2017-05-23] MEDS: PRENATAL VITAMINS W/ FOLIC ACID TABLET (FP) PO SCH (10:06)
[2017-05-23] MEDS: cloNIDine HCL 0.1 MG TABLET PO SCH ×2 (10:06→21:18)
[2017-05-23] MEDS: NAPROXEN 500 MG TABLET (FP) PO SCH ×2 (10:06→21:19)
[2017-05-23] MEDS: NICOTINE POLACRILEX 2 MG GUM BC PRN (10:06)
[2017-05-23] MEDS: NICOTINE 14 MG/24 HOURS TOPICAL PATCH TD SCH (10:07)
--- NOTE | 2017-05-23 10:18 | PN ---
[facility] Progress Note (SOAP) Subjective: c/o continued opioid withdrawal sx, would like to increase dose agrees to e appointment for aftercare Objective: 05/23/17 10:17 Vital Signs - 24 hr 05/22/17 05/23/17 05/23/17 22:00 00:30 03:30 Temperature Pulse Rate 81 Respiratory 18 16 16 Rate Blood Pressure 110/65 05/23/17 06:42 Temperature 97.3 F L Pulse Rate 72 Respiratory 18 Rate Blood Pressure 94/54 Laboratory Tests 05/20/17 05/21/17 05/21/17 22:50 07:30 07:30 WBC 4.9 D RBC 4.99 Hgb 14.1 Hct 42.4 MCV 85.0 MCH 28.2 MCHC 33.2 RDW 14.0 Plt Count 179 D MPV 10.5 Sodium 140 Potassium 4.6 Chloride 103 Carbon Dioxide 30 Anion Gap 7 L BUN 19 H Creatinine 0.9 Creat Clearance w eGFR > 60 Random Glucose 74 Calcium 8.9 Total Bilirubin 0.5 AST 52 H ALT 86 H D Alkaline Phosphatase 69 D Total Protein 7.6 Albumin 3.8 Urine Color Ltyellow Urine Appearance Clear Urine pH 8.0 D Ur Specific [place] 1.010 Urine Protein Negative Urine Glucose (UA) Negative Urine Ketones Negative Urine Blood Negative Urine Nitrite Negative Urine Bilirubin Negative Urine Urobilinogen Negative Ur Leukocyte Esterase Negative RPR Titer 05/21/17 07:30 WBC RBC Hgb Hct MCV MCH MCHC RDW Plt Count MPV Sodium Potassium Chloride Carbon Dioxide Anion Gap BUN Creatinine Creat Clearance w eGFR Random Glucose Calcium Total Bilirubin AST ALT Alkaline Phosphatase Total Protein Albumin Urine Color Urine Appearance Urine pH Ur Specific [place] Urine Protein Urine Glucose (UA) Urine Ketones Urine Blood Urine Nitrite Urine Bilirubin Urine Urobilinogen Ur Leukocyte Esterase RPR Titer Nonreactive Assessment: 05/23/17 10:17 oud - adjust mat to achieve relief of craving , desire to use. additional 4mg toay total dose today =6mg, tomorrwo qwill have 4mg daily until discharge.
[2017-05-23] MEDS ORDERED: BUPRENORPHINE/NALOXONE 2 MG/0.5 MG FILM PACKET SL ONE (10:45)
[2017-05-23] MEDS: THIAMINE HCL 100 MG TABLET (FP) PO SCH (21:18)
[2017-05-23] MEDS: QUEtiapine FUMARATE 50 MG TABLET PO SCH (21:18)
[2017-05-24] MEDS: GABAPENTIN 300 MG CAPSULE (FP) PO SCH ×3 (06:32→21:13)
[2017-05-24] MEDS: CYCLOBENZAPRINE HCL 10 MG TABLET (FP) PO SCH ×3 (06:32→21:12)
[2017-05-24] MEDS: NAPROXEN 500 MG TABLET (FP) PO SCH ×2 (09:50→21:13)
[2017-05-24] MEDS: cloNIDine HCL 0.1 MG TABLET PO SCH ×2 (09:50→21:13)
[2017-05-24] MEDS: PRENATAL VITAMINS W/ FOLIC ACID TABLET (FP) PO SCH (09:50)
[2017-05-24] MEDS: PANTOPRAZOLE 40 MG TABLET (FP) PO SCH (09:50)
[2017-05-24] MEDS: BUPRENORPHINE/NALOXONE 2 MG/0.5 MG FILM PACKET SL SCH (09:51)
[2017-05-24] MEDS: NICOTINE 14 MG/24 HOURS TOPICAL PATCH TD SCH (09:51)
[2017-05-24] MEDS: NICOTINE POLACRILEX 2 MG GUM BC PRN ×2 (09:51→21:13)
[2017-05-24] MEDS: THIAMINE HCL 100 MG TABLET (FP) PO SCH (21:12)
[2017-05-24] MEDS: QUEtiapine FUMARATE 50 MG TABLET PO SCH (21:13)
[2017-05-25] MEDS: CYCLOBENZAPRINE HCL 10 MG TABLET (FP) PO SCH ×3 (06:40→21:09)
[2017-05-25] MEDS: GABAPENTIN 300 MG CAPSULE (FP) PO SCH ×3 (06:40→21:09)
[2017-05-25] MEDS: NAPROXEN 500 MG TABLET (FP) PO SCH ×2 (10:00→21:09)
[2017-05-25] MEDS: PRENATAL VITAMINS W/ FOLIC ACID TABLET (FP) PO SCH (10:00)
[2017-05-25] MEDS: cloNIDine HCL 0.1 MG TABLET PO SCH ×2 (10:00→21:09)
[2017-05-25] MEDS: PANTOPRAZOLE 40 MG TABLET (FP) PO SCH (10:00)
[2017-05-25] MEDS: NICOTINE 14 MG/24 HOURS TOPICAL PATCH TD SCH (10:01)
[2017-05-25] MEDS: BUPRENORPHINE/NALOXONE 2 MG/0.5 MG FILM PACKET SL SCH (10:01)
[2017-05-25] MEDS: NICOTINE POLACRILEX 2 MG GUM BC PRN (10:02)
[2017-05-25] MEDS: THIAMINE HCL 100 MG TABLET (FP) PO SCH (21:09)
[2017-05-25] MEDS: QUEtiapine FUMARATE 50 MG TABLET PO SCH (21:09)
[2017-05-26] MEDS: CYCLOBENZAPRINE HCL 10 MG TABLET (FP) PO SCH ×3 (06:28→21:16)
[2017-05-26] MEDS: GABAPENTIN 300 MG CAPSULE (FP) PO SCH ×3 (06:28→21:16)
[2017-05-26] MEDS: PANTOPRAZOLE 40 MG TABLET (FP) PO SCH (10:17)
[2017-05-26] MEDS: NAPROXEN 500 MG TABLET (FP) PO SCH ×2 (10:17→21:16)
[2017-05-26] MEDS: cloNIDine HCL 0.1 MG TABLET PO SCH ×2 (10:17→21:16)
[2017-05-26] MEDS: NICOTINE 14 MG/24 HOURS TOPICAL PATCH TD SCH (10:18)
[2017-05-26] MEDS: BUPRENORPHINE/NALOXONE 2 MG/0.5 MG FILM PACKET SL SCH (10:18)
[2017-05-26] MEDS: PRENATAL VITAMINS W/ FOLIC ACID TABLET (FP) PO SCH (10:18)
[2017-05-26] MEDS: THIAMINE HCL 100 MG TABLET (FP) PO SCH (21:16)
[2017-05-26] MEDS: QUEtiapine FUMARATE 50 MG TABLET PO SCH (21:16)
[2017-05-26] MEDS: NICOTINE POLACRILEX 2 MG GUM BC PRN (21:17)
[2017-05-27] MEDS: GABAPENTIN 300 MG CAPSULE (FP) PO SCH ×3 (06:12→21:11)
[2017-05-27] MEDS: CYCLOBENZAPRINE HCL 10 MG TABLET (FP) PO SCH ×3 (06:12→21:12)
[2017-05-27] MEDS: PRENATAL VITAMINS W/ FOLIC ACID TABLET (FP) PO SCH (09:56)
[2017-05-27] MEDS: PANTOPRAZOLE 40 MG TABLET (FP) PO SCH (09:56)
[2017-05-27] MEDS: cloNIDine HCL 0.1 MG TABLET PO SCH (09:56)
[2017-05-27] MEDS: NICOTINE 14 MG/24 HOURS TOPICAL PATCH TD SCH (09:56)
[2017-05-27] MEDS: NAPROXEN 500 MG TABLET (FP) PO SCH (09:56)
[2017-05-27] MEDS: BUPRENORPHINE/NALOXONE 2 MG/0.5 MG FILM PACKET SL SCH (09:56)
[2017-05-27] MEDS: NICOTINE POLACRILEX 2 MG GUM BC PRN (10:00)
--- NOTE | 2017-05-27 13:35 | PN ---
[facility] Progress Note (SOAP) Subjective: C/O CONTINUED OPIOID WITHDRAWAL SX, HAS [facility] FOR AFTERCARE, WANTS TO INCREASE DOSE, BILATERAL ANKLE SWELLING Objective: 05/27/17 13:33 Vital Signs - 24 hr 05/26/17 05/27/17 05/27/17 21:18 00:30 03:30 Temperature Pulse Rate 82 Respiratory 20 16 Rate Blood Pressure 112/69 05/27/17 05/27/17 06:53 10:00 Temperature 97.4 F L Pulse Rate 75 90 Respiratory 16 18 Rate Blood Pressure 109/69 121/69 Laboratory Tests 05/20/17 05/21/17 05/21/17 22:50 07:30 07:30 WBC 4.9 D RBC 4.99 Hgb 14.1 Hct 42.4 MCV 85.0 MCH 28.2 MCHC 33.2 RDW 14.0 Plt Count 179 D MPV 10.5 Sodium 140 Potassium 4.6 Chloride 103 Carbon Dioxide 30 Anion Gap 7 L BUN 19 H Creatinine 0.9 Creat Clearance w eGFR > 60 Random Glucose 74 Calcium 8.9 Total Bilirubin 0.5 AST 52 H ALT 86 H D Alkaline Phosphatase 69 D Total Protein 7.6 Albumin 3.8 Urine Color Ltyellow Urine Appearance Clear Urine pH 8.0 D Ur Specific [place] 1.010 Urine Protein Negative Urine Glucose (UA) Negative Urine Ketones Negative Urine Blood Negative Urine Nitrite Negative Urine Bilirubin Negative Urine Urobilinogen Negative Ur Leukocyte Esterase Negative RPR Titer 05/21/17 07:30 WBC RBC Hgb Hct MCV MCH MCHC RDW Plt Count MPV Sodium Potassium Chloride Carbon Dioxide Anion Gap BUN Creatinine Creat Clearance w eGFR Random Glucose Calcium Total Bilirubin AST ALT Alkaline Phosphatase Total Protein Albumin Urine Color Urine Appearance Urine pH Ur Specific [place] Urine Protein Urine Glucose (UA) Urine Ketones Urine Blood Urine Nitrite Urine Bilirubin Urine Urobilinogen Ur Leukocyte Esterase RPR Titer Nonreactive 05/27/17 13:33 MILD BIALTERAL FOOT SWELLING NOTED, NO INJURY NO ERYTHEMA OR INFECTION NOTED Assessment: 05/27/17 13:33 OUD - mat TO BE ADJUSTED TO 8MG DAILY, EXTRA 4MG TODAY, F/U AFTERCARE ARRANGED AT [facility], WILL D/C CLONIDINE AND START HCTZ LOW DOSE, ELEVATE
[2017-05-27] MEDS ORDERED: BUPRENORPHINE/NALOXONE 2 MG/0.5 MG FILM PACKET SL ONE (14:02)
[2017-05-27] MEDS: HYDROCHLOROTHIAZIDE 12.5 MG CAPSULE (FP) PO SCH (14:15)
[2017-05-27] MEDS: THIAMINE HCL 100 MG TABLET (FP) PO SCH (21:11)
[2017-05-27] MEDS: QUEtiapine FUMARATE 50 MG TABLET PO SCH (21:12)
[2017-05-28] MEDS: GABAPENTIN 300 MG CAPSULE (FP) PO SCH ×3 (06:21→21:17)
[2017-05-28] MEDS: CYCLOBENZAPRINE HCL 10 MG TABLET (FP) PO SCH ×3 (06:22→21:17)
[2017-05-28] MEDS: PRENATAL VITAMINS W/ FOLIC ACID TABLET (FP) PO SCH (09:56)
[2017-05-28] MEDS: HYDROCHLOROTHIAZIDE 12.5 MG CAPSULE (FP) PO SCH (09:57)
[2017-05-28] MEDS: NICOTINE POLACRILEX 2 MG GUM BC PRN (09:57)
[2017-05-28] MEDS: BUPRENORPHINE/NALOXONE 8 MG/2 MG FILM PACKET SL SCH (09:57)
[2017-05-28] MEDS: NICOTINE 14 MG/24 HOURS TOPICAL PATCH TD SCH (09:57)
[2017-05-28] MEDS: QUEtiapine FUMARATE 50 MG TABLET PO SCH (21:17)
[2017-05-28] MEDS: THIAMINE HCL 100 MG TABLET (FP) PO SCH (21:18)
[2017-05-29] MEDS: CYCLOBENZAPRINE HCL 10 MG TABLET (FP) PO SCH ×3 (06:38→21:23)
[2017-05-29] MEDS: GABAPENTIN 300 MG CAPSULE (FP) PO SCH ×3 (06:38→21:23)
[2017-05-29] MEDS: PRENATAL VITAMINS W/ FOLIC ACID TABLET (FP) PO SCH (10:00)
[2017-05-29] MEDS: NICOTINE POLACRILEX 2 MG GUM BC PRN (10:00)
[2017-05-29] MEDS: BUPRENORPHINE/NALOXONE 8 MG/2 MG FILM PACKET SL SCH (10:00)
[2017-05-29] MEDS: NICOTINE 14 MG/24 HOURS TOPICAL PATCH TD SCH (10:00)
[2017-05-29] MEDS: HYDROCHLOROTHIAZIDE 12.5 MG CAPSULE (FP) PO SCH (10:00)
[2017-05-29] MEDS: QUEtiapine FUMARATE 50 MG TABLET PO SCH (21:23)
[2017-05-29] MEDS: THIAMINE HCL 100 MG TABLET (FP) PO SCH (21:23)
[2017-05-30] MEDS: GABAPENTIN 300 MG CAPSULE (FP) PO SCH ×3 (06:39→21:17)
[2017-05-30] MEDS: CYCLOBENZAPRINE HCL 10 MG TABLET (FP) PO SCH ×3 (06:39→21:17)
[2017-05-30] MEDS: NICOTINE POLACRILEX 2 MG GUM BC PRN ×2 (06:40→10:08)
[2017-05-30] MEDS: NICOTINE 14 MG/24 HOURS TOPICAL PATCH TD SCH (10:07)
[2017-05-30] MEDS: PRENATAL VITAMINS W/ FOLIC ACID TABLET (FP) PO SCH (10:07)
[2017-05-30] MEDS: HYDROCHLOROTHIAZIDE 12.5 MG CAPSULE (FP) PO SCH (10:07)
[2017-05-30] MEDS: BUPRENORPHINE/NALOXONE 8 MG/2 MG FILM PACKET SL SCH (10:07)
[2017-05-30] MEDS: QUEtiapine FUMARATE 50 MG TABLET PO SCH (21:17)
[2017-05-30] MEDS: THIAMINE HCL 100 MG TABLET (FP) PO SCH (21:17)
[2017-05-31] MEDS: CYCLOBENZAPRINE HCL 10 MG TABLET (FP) PO SCH ×3 (06:13→21:09)
[2017-05-31] MEDS: GABAPENTIN 300 MG CAPSULE (FP) PO SCH ×3 (06:13→21:09)
[2017-05-31] MEDS: NICOTINE POLACRILEX 2 MG GUM BC PRN ×3 (06:14→14:28)
[2017-05-31] MEDS: NICOTINE 14 MG/24 HOURS TOPICAL PATCH TD SCH (10:10)
[2017-05-31] MEDS: PRENATAL VITAMINS W/ FOLIC ACID TABLET (FP) PO SCH (10:11)
[2017-05-31] MEDS: BUPRENORPHINE/NALOXONE 8 MG/2 MG FILM PACKET SL SCH (10:11)
[2017-05-31] MEDS: HYDROCHLOROTHIAZIDE 12.5 MG CAPSULE (FP) PO SCH (10:11)
[2017-05-31] MEDS: QUEtiapine FUMARATE 50 MG TABLET PO SCH (21:09)
[2017-05-31] MEDS: THIAMINE HCL 100 MG TABLET (FP) PO SCH (21:09)
[2017-06-01] MEDS: CYCLOBENZAPRINE HCL 10 MG TABLET (FP) PO SCH ×3 (06:13→21:05)
[2017-06-01] MEDS: GABAPENTIN 300 MG CAPSULE (FP) PO SCH ×3 (06:13→21:05)
[2017-06-01] MEDS: PRENATAL VITAMINS W/ FOLIC ACID TABLET (FP) PO SCH (09:40)
[2017-06-01] MEDS: NICOTINE 14 MG/24 HOURS TOPICAL PATCH TD SCH (09:40)
[2017-06-01] MEDS: BUPRENORPHINE/NALOXONE 8 MG/2 MG FILM PACKET SL SCH (09:40)
[2017-06-01] MEDS: HYDROCHLOROTHIAZIDE 12.5 MG CAPSULE (FP) PO SCH (09:40)
[2017-06-01] MEDS: NICOTINE POLACRILEX 2 MG GUM BC PRN ×2 (09:40→21:06)
[2017-06-01] MEDS: QUEtiapine FUMARATE 50 MG TABLET PO SCH (21:05)
[2017-06-01] MEDS: THIAMINE HCL 100 MG TABLET (FP) PO SCH (21:05)
[2017-06-02] MEDS: GABAPENTIN 300 MG CAPSULE (FP) PO SCH ×3 (06:02→21:09)
[2017-06-02] MEDS: CYCLOBENZAPRINE HCL 10 MG TABLET (FP) PO SCH ×3 (06:02→21:09)
[2017-06-02] MEDS: MAG HYDROX/AL HYDROX/SIMETH 30 ML UNIT-DOSE CUP PO PRN (08:42)
[2017-06-02] MEDS: PRENATAL VITAMINS W/ FOLIC ACID TABLET (FP) PO SCH (09:48)
[2017-06-02] MEDS: BUPRENORPHINE/NALOXONE 8 MG/2 MG FILM PACKET SL SCH (09:48)
[2017-06-02] MEDS: HYDROCHLOROTHIAZIDE 12.5 MG CAPSULE (FP) PO SCH (09:48)
[2017-06-02] MEDS: NICOTINE 14 MG/24 HOURS TOPICAL PATCH TD SCH (09:48)
[2017-06-02] MEDS: MAGNESIUM HYDROX 2400MG/30ML ORAL SUSPENSION 30 ML CUP PO PRN (09:49)
[2017-06-02] MEDS: NICOTINE POLACRILEX 2 MG GUM BC PRN ×3 (09:49→21:10)
[2017-06-02] MEDS: THIAMINE HCL 100 MG TABLET (FP) PO SCH (21:09)
[2017-06-02] MEDS: QUEtiapine FUMARATE 50 MG TABLET PO SCH (21:09)
[2017-06-03] MEDS: GABAPENTIN 300 MG CAPSULE (FP) PO SCH ×3 (06:28→21:09)
[2017-06-03] MEDS: CYCLOBENZAPRINE HCL 10 MG TABLET (FP) PO SCH ×3 (06:28→21:09)
[2017-06-03] MEDS: HYDROCHLOROTHIAZIDE 12.5 MG CAPSULE (FP) PO SCH (09:45)
[2017-06-03] MEDS: PRENATAL VITAMINS W/ FOLIC ACID TABLET (FP) PO SCH (09:45)
[2017-06-03] MEDS: NICOTINE 14 MG/24 HOURS TOPICAL PATCH TD SCH (09:45)
[2017-06-03] MEDS: NICOTINE POLACRILEX 2 MG GUM BC PRN (09:47)
[2017-06-03] MEDS: BUPRENORPHINE/NALOXONE 8 MG/2 MG FILM PACKET SL SCH (09:58)
[2017-06-03] MEDS: THIAMINE HCL 100 MG TABLET (FP) PO SCH (21:09)
[2017-06-03] MEDS: QUEtiapine FUMARATE 50 MG TABLET PO SCH (21:09)
[2017-06-04] MEDS: GABAPENTIN 300 MG CAPSULE (FP) PO SCH ×3 (06:17→21:20)
[2017-06-04] MEDS: CYCLOBENZAPRINE HCL 10 MG TABLET (FP) PO SCH ×3 (06:17→21:20)
[2017-06-04] MEDS: PRENATAL VITAMINS W/ FOLIC ACID TABLET (FP) PO SCH (09:43)
[2017-06-04] MEDS: BUPRENORPHINE/NALOXONE 8 MG/2 MG FILM PACKET SL SCH (09:43)
[2017-06-04] MEDS: NICOTINE 14 MG/24 HOURS TOPICAL PATCH TD SCH (09:43)
[2017-06-04] MEDS: HYDROCHLOROTHIAZIDE 12.5 MG CAPSULE (FP) PO SCH (09:43)
[2017-06-04] MEDS: NICOTINE POLACRILEX 2 MG GUM BC PRN ×2 (14:11→21:21)
[2017-06-04] MEDS: THIAMINE HCL 100 MG TABLET (FP) PO SCH (21:19)
[2017-06-04] MEDS: QUEtiapine FUMARATE 50 MG TABLET PO SCH (21:20)
[2017-06-05] MEDS: CYCLOBENZAPRINE HCL 10 MG TABLET (FP) PO SCH ×3 (06:11→21:18)
[2017-06-05] MEDS: GABAPENTIN 300 MG CAPSULE (FP) PO SCH ×3 (06:11→21:18)
[2017-06-05] MEDS: HYDROCHLOROTHIAZIDE 12.5 MG CAPSULE (FP) PO SCH (09:51)
[2017-06-05] MEDS: NICOTINE 14 MG/24 HOURS TOPICAL PATCH TD SCH (09:51)
[2017-06-05] MEDS: PRENATAL VITAMINS W/ FOLIC ACID TABLET (FP) PO SCH (09:51)
[2017-06-05] MEDS: BUPRENORPHINE/NALOXONE 8 MG/2 MG FILM PACKET SL SCH (09:51)
[2017-06-05] MEDS: NICOTINE POLACRILEX 2 MG GUM BC PRN ×2 (09:59→21:19)
--- NOTE | 2017-06-05 15:42 | PN ---
[facility] Progress Note (SOAP) Subjective: c/o of small lump on the left ear Objective: 06/05/17 15:40 Vital Signs Temperature 95.9 F L 06/05/17 06:53 Pulse Rate 86 06/05/17 10:00 Respiratory Rate 18 06/05/17 06:53 Blood Pressure 119/67 06/05/17 10:00 O2 Sat by Pulse Oximetry (%) Laboratory Last Values WBC 4.9 K/mm3 (4.0-10.0) D 05/21/17 07:30 RBC 4.99 M/mm3 (4.00-5.60) 05/21/17 07:30 Hgb 14.1 GM/dL (11.7-16.9) 05/21/17 07:30 Hct 42.4 % (35.4-49) 05/21/17 07:30 MCV 85.0 fl (80-96) 05/21/17 07:30 MCH 28.2 pg (25.7-33.7) 05/21/17 07:30 MCHC 33.2 g/dl (32.0-35.9) 05/21/17 07:30 RDW 14.0 % (11.9-15.9) 05/21/17 07:30 Plt Count 179 K/MM3 (134-434) D 05/21/17 07:30 MPV 10.5 fl (7.5-11.1) 05/21/17 07:30 Sodium 140 mmol/L (136-145) 05/21/17 07:30 Potassium 4.6 mmol/L (3.5-5.1) 05/21/17 07:30 Chloride 103 mmol/L (98-107) 05/21/17 07:30 Carbon Dioxide 30 mmol/L (21-32) 05/21/17 07:30 Anion Gap 7 (8-16) L 05/21/17 07:30 BUN 19 mg/dL (7-18) H 05/21/17 07:30 Creatinine 0.9 mg/dL (0.7-1.3) 05/21/17 07:30 Creat Clearance w eGFR > 60 (>60) 05/21/17 07:30 Random Glucose 74 mg/dL (74-106) 05/21/17 07:30 Calcium 8.9 mg/dL (8.5-10.1) 05/21/17 07:30 Total Bilirubin 0.5 mg/dL (0.2-1.0) 05/21/17 07:30 AST 52 U/L (15-37) H 05/21/17 07:30 ALT 86 U/L (12-78) H D 05/21/17 07:30 Alkaline Phosphatase 69 U/L (45-117) D 05/21/17 07:30 Total Protein 7.6 g/dl (6.4-8.2) 05/21/17 07:30 Albumin 3.8 g/dl (3.4-5.0) 05/21/17 07:30 Urine Color Ltyellow 05/20/17 22:50 Urine Appearance Clear 05/20/17 22:50 Urine pH 8.0 (5.0-8.0) D 05/20/17 22:50 Ur Specific [place] 1.010 (1.001-1.035) 05/20/17 22:50 Urine Protein Negative (NEGATIVE) 05/20/17 22:50 Urine Glucose (UA) Negative (NEGATIVE) 05/20/17 22:50 Urine Ketones Negative (NEGATIVE) 05/20/17 22:50 Urine Blood Negative (NEGATIVE) 05/20/17 22:50 Urine Nitrite Negative (NEGATIVE) 05/20/17 22:50 Urine Bilirubin Negative (NEGATIVE) 05/20/17 22:50 Urine Urobilinogen Negative mg/dL (0.2-1.0) 05/20/17 22:50 Ur Leukocyte Esterase Negative (NEGATIVE) 05/20/17 22:50 RPR Titer Nonreactive (NONREACTIVE) 05/21/17 07:30 Small cyst on the left ear , patient in no apparent distress 06/05/17 15:41 Assessment: 06/05/17 15:41 small cyst of the left ear Plan: keep area clean and dry apply Bacitracin BID
[2017-06-05] MEDS: QUEtiapine FUMARATE 50 MG TABLET PO SCH (21:18)
[2017-06-05] MEDS: THIAMINE HCL 100 MG TABLET (FP) PO SCH (21:18)
[2017-06-05] MEDS: BACITRACIN 0.9 GM PACKET TP SCH (21:18)
[2017-06-06] MEDS: CYCLOBENZAPRINE HCL 10 MG TABLET (FP) PO SCH ×3 (06:21→21:14)
[2017-06-06] MEDS: GABAPENTIN 300 MG CAPSULE (FP) PO SCH ×3 (06:21→21:15)
[2017-06-06] MEDS: PRENATAL VITAMINS W/ FOLIC ACID TABLET (FP) PO SCH (09:55)
[2017-06-06] MEDS: HYDROCHLOROTHIAZIDE 12.5 MG CAPSULE (FP) PO SCH (09:55)
[2017-06-06] MEDS: NICOTINE 14 MG/24 HOURS TOPICAL PATCH TD SCH (09:55)
[2017-06-06] MEDS: BACITRACIN 0.9 GM PACKET TP SCH ×2 (09:55→21:14)
[2017-06-06] MEDS: BUPRENORPHINE/NALOXONE 8 MG/2 MG FILM PACKET SL SCH (09:55)
[2017-06-06] MEDS: NICOTINE POLACRILEX 2 MG GUM BC PRN (10:01)
[2017-06-06] MEDS: QUEtiapine FUMARATE 50 MG TABLET PO SCH (21:14)
[2017-06-06] MEDS: THIAMINE HCL 100 MG TABLET (FP) PO SCH (21:15)
[2017-06-07] MEDS: CYCLOBENZAPRINE HCL 10 MG TABLET (FP) PO SCH ×3 (05:58→21:13)
[2017-06-07] MEDS: GABAPENTIN 300 MG CAPSULE (FP) PO SCH ×3 (05:58→21:13)
[2017-06-07] MEDS: HYDROCHLOROTHIAZIDE 12.5 MG CAPSULE (FP) PO SCH (09:52)
[2017-06-07] MEDS: BACITRACIN 0.9 GM PACKET TP SCH ×2 (09:52→21:13)
[2017-06-07] MEDS: PRENATAL VITAMINS W/ FOLIC ACID TABLET (FP) PO SCH (09:52)
[2017-06-07] MEDS: BUPRENORPHINE/NALOXONE 8 MG/2 MG FILM PACKET SL SCH (09:52)
[2017-06-07] MEDS: NICOTINE 14 MG/24 HOURS TOPICAL PATCH TD SCH (09:52)
[2017-06-07] MEDS: NICOTINE POLACRILEX 4 MG GUM BUC PRN ×2 (09:53→14:14)
[2017-06-07] MEDS: THIAMINE HCL 100 MG TABLET (FP) PO SCH (21:13)
[2017-06-07] MEDS: QUEtiapine FUMARATE 50 MG TABLET PO SCH (21:13)
[2017-06-08] MEDS: CYCLOBENZAPRINE HCL 10 MG TABLET (FP) PO SCH ×3 (06:13→21:08)
[2017-06-08] MEDS: GABAPENTIN 300 MG CAPSULE (FP) PO SCH ×3 (06:13→21:08)
[2017-06-08] MEDS: BACITRACIN 0.9 GM PACKET TP SCH ×2 (09:48→21:08)
[2017-06-08] MEDS: PRENATAL VITAMINS W/ FOLIC ACID TABLET (FP) PO SCH (09:48)
[2017-06-08] MEDS: NICOTINE POLACRILEX 4 MG GUM BUC PRN ×2 (09:48→21:09)
[2017-06-08] MEDS: NICOTINE 14 MG/24 HOURS TOPICAL PATCH TD SCH (09:48)
[2017-06-08] MEDS: BUPRENORPHINE/NALOXONE 8 MG/2 MG FILM PACKET SL SCH (09:48)
[2017-06-08] MEDS: HYDROCHLOROTHIAZIDE 12.5 MG CAPSULE (FP) PO SCH (09:48)
[2017-06-08] MEDS: THIAMINE HCL 100 MG TABLET (FP) PO SCH (21:08)
[2017-06-08] MEDS: QUEtiapine FUMARATE 50 MG TABLET PO SCH (21:08)
[2017-06-09] MEDS: GABAPENTIN 300 MG CAPSULE (FP) PO SCH ×3 (06:31→21:08)
[2017-06-09] MEDS: NICOTINE POLACRILEX 4 MG GUM BUC PRN ×3 (06:31→21:10)
[2017-06-09] MEDS: CYCLOBENZAPRINE HCL 10 MG TABLET (FP) PO SCH ×3 (06:31→21:08)
[2017-06-09] MEDS: HYDROCHLOROTHIAZIDE 12.5 MG CAPSULE (FP) PO SCH (10:08)
[2017-06-09] MEDS: PRENATAL VITAMINS W/ FOLIC ACID TABLET (FP) PO SCH (10:08)
[2017-06-09] MEDS: NICOTINE 14 MG/24 HOURS TOPICAL PATCH TD SCH (10:08)
[2017-06-09] MEDS: BACITRACIN 0.9 GM PACKET TP SCH ×2 (10:09→21:08)
[2017-06-09] MEDS: BUPRENORPHINE/NALOXONE 8 MG/2 MG FILM PACKET SL SCH (10:09)
[2017-06-09] MEDS: QUEtiapine FUMARATE 50 MG TABLET PO SCH (21:08)
[2017-06-09] MEDS: THIAMINE HCL 100 MG TABLET (FP) PO SCH (21:09)
[2017-06-10] MEDS: CYCLOBENZAPRINE HCL 10 MG TABLET (FP) PO SCH ×3 (06:13→21:07)
[2017-06-10] MEDS: NICOTINE POLACRILEX 4 MG GUM BUC PRN ×3 (06:13→21:07)
[2017-06-10] MEDS: GABAPENTIN 300 MG CAPSULE (FP) PO SCH ×3 (06:13→21:06)
[2017-06-10] MEDS: HYDROCHLOROTHIAZIDE 12.5 MG CAPSULE (FP) PO SCH (09:54)
[2017-06-10] MEDS: PRENATAL VITAMINS W/ FOLIC ACID TABLET (FP) PO SCH (09:54)
[2017-06-10] MEDS: BACITRACIN 0.9 GM PACKET TP SCH ×2 (09:54→21:06)
[2017-06-10] MEDS: NICOTINE 14 MG/24 HOURS TOPICAL PATCH TD SCH (09:55)
[2017-06-10] MEDS: BUPRENORPHINE/NALOXONE 8 MG/2 MG FILM PACKET SL SCH (10:20)
[2017-06-10] MEDS: MAG HYDROX/AL HYDROX/SIMETH 30 ML UNIT-DOSE CUP PO PRN (10:23)
[2017-06-10] MEDS: THIAMINE HCL 100 MG TABLET (FP) PO SCH (21:06)
[2017-06-10] MEDS: QUEtiapine FUMARATE 50 MG TABLET PO SCH (21:07)
[2017-06-11] MEDS: GABAPENTIN 300 MG CAPSULE (FP) PO SCH ×3 (06:04→21:10)
[2017-06-11] MEDS: CYCLOBENZAPRINE HCL 10 MG TABLET (FP) PO SCH ×3 (06:04→21:10)
[2017-06-11] MEDS: BUPRENORPHINE/NALOXONE 8 MG/2 MG FILM PACKET SL SCH (09:56)
[2017-06-11] MEDS: NICOTINE 14 MG/24 HOURS TOPICAL PATCH TD SCH (09:56)
[2017-06-11] MEDS: HYDROCHLOROTHIAZIDE 12.5 MG CAPSULE (FP) PO SCH (09:56)
[2017-06-11] MEDS: BACITRACIN 0.9 GM PACKET TP SCH ×2 (09:56→21:10)
[2017-06-11] MEDS: PRENATAL VITAMINS W/ FOLIC ACID TABLET (FP) PO SCH (09:56)
[2017-06-11] MEDS: NICOTINE POLACRILEX 4 MG GUM BUC PRN ×2 (09:57→21:11)
[2017-06-11] MEDS: MAGNESIUM HYDROX 2400MG/30ML ORAL SUSPENSION 30 ML CUP PO PRN (09:57)
[2017-06-11] MEDS: QUEtiapine FUMARATE 50 MG TABLET PO SCH (21:10)
[2017-06-11] MEDS: THIAMINE HCL 100 MG TABLET (FP) PO SCH (21:10)
[2017-06-12] MEDS: CYCLOBENZAPRINE HCL 10 MG TABLET (FP) PO SCH ×3 (06:33→21:08)
[2017-06-12] MEDS: GABAPENTIN 300 MG CAPSULE (FP) PO SCH ×3 (06:33→21:08)
[2017-06-12] MEDS: NICOTINE POLACRILEX 4 MG GUM BUC PRN ×3 (06:34→21:09)
[2017-06-12] MEDS: BUPRENORPHINE/NALOXONE 8 MG/2 MG FILM PACKET SL SCH (09:58)
[2017-06-12] MEDS: NICOTINE 14 MG/24 HOURS TOPICAL PATCH TD SCH (09:58)
[2017-06-12] MEDS: PRENATAL VITAMINS W/ FOLIC ACID TABLET (FP) PO SCH (09:58)
[2017-06-12] MEDS: BACITRACIN 0.9 GM PACKET TP SCH ×2 (09:59→21:08)
[2017-06-12] MEDS: HYDROCHLOROTHIAZIDE 12.5 MG CAPSULE (FP) PO SCH (10:00)
[2017-06-12] MEDS: THIAMINE HCL 100 MG TABLET (FP) PO SCH (21:08)
[2017-06-12] MEDS: QUEtiapine FUMARATE 50 MG TABLET PO SCH (21:08)
[2017-06-13] MEDS: GABAPENTIN 300 MG CAPSULE (FP) PO SCH ×3 (06:19→21:08)
[2017-06-13] MEDS: CYCLOBENZAPRINE HCL 10 MG TABLET (FP) PO SCH ×3 (06:19→21:08)
[2017-06-13] MEDS: NICOTINE POLACRILEX 4 MG GUM BUC PRN ×3 (06:20→21:09)
[2017-06-13] MEDS: HYDROCHLOROTHIAZIDE 12.5 MG CAPSULE (FP) PO SCH (09:57)
[2017-06-13] MEDS: BACITRACIN 0.9 GM PACKET TP SCH ×2 (09:57→21:09)
[2017-06-13] MEDS: BUPRENORPHINE/NALOXONE 8 MG/2 MG FILM PACKET SL SCH (09:57)
[2017-06-13] MEDS: NICOTINE 14 MG/24 HOURS TOPICAL PATCH TD SCH (09:57)
[2017-06-13] MEDS: PRENATAL VITAMINS W/ FOLIC ACID TABLET (FP) PO SCH (09:57)
[2017-06-13] MEDS: THIAMINE HCL 100 MG TABLET (FP) PO SCH (21:08)
[2017-06-13] MEDS: QUEtiapine FUMARATE 50 MG TABLET PO SCH (21:08)
[2017-06-14] MEDS: CYCLOBENZAPRINE HCL 10 MG TABLET (FP) PO SCH ×3 (06:18→21:11)
[2017-06-14] MEDS: NICOTINE POLACRILEX 4 MG GUM BUC PRN ×3 (06:18→21:11)
[2017-06-14] MEDS: GABAPENTIN 300 MG CAPSULE (FP) PO SCH ×2 (06:18→14:22)
[2017-06-14] MEDS: NICOTINE 14 MG/24 HOURS TOPICAL PATCH TD SCH (09:57)
[2017-06-14] MEDS: PRENATAL VITAMINS W/ FOLIC ACID TABLET (FP) PO SCH (09:57)
[2017-06-14] MEDS: BACITRACIN 0.9 GM PACKET TP SCH ×2 (09:57→21:10)
[2017-06-14] MEDS: HYDROCHLOROTHIAZIDE 12.5 MG CAPSULE (FP) PO SCH (09:57)
[2017-06-14] MEDS: BUPRENORPHINE/NALOXONE 8 MG/2 MG FILM PACKET SL SCH (09:57)
[2017-06-14] MEDS: MAG HYDROX/AL HYDROX/SIMETH 30 ML UNIT-DOSE CUP PO PRN (10:40)
--- NOTE | 2017-06-14 16:56 | PN ---
[facility] Progress Note Note: Patient continue to report low back pain and paresthesia on the right lower extremtiey. Vital Signs Temperature 97.4 F L 06/14/17 06:49 Pulse Rate 79 06/14/17 06:49 Respiratory Rate 18 06/14/17 06:49 Blood Pressure 114/76 06/14/17 06:49 O2 Sat by Pulse Oximetry (%) Patient AO x 3 in no apparent distress Skin integrity intact, no signs of cyanosis Patient ambulating without difficulty, + back pain, and pain on the right lower extremity, + chronic paresthesia on RLE Plan: Increase fluids Continue to ambulate Increase gabapentin 400mg TID Continue to monitor
[2017-06-14] MEDS: QUEtiapine FUMARATE 50 MG TABLET PO SCH (21:11)
[2017-06-14] MEDS: GABAPENTIN 400 MG CAPSULE (FP) PO SCH (21:11)
[2017-06-14] MEDS: THIAMINE HCL 100 MG TABLET (FP) PO SCH (21:11)
[2017-06-15] MEDS: CYCLOBENZAPRINE HCL 10 MG TABLET (FP) PO SCH ×3 (06:08→21:10)
[2017-06-15] MEDS: NICOTINE POLACRILEX 4 MG GUM BUC PRN ×3 (06:09→21:11)
[2017-06-15] MEDS: GABAPENTIN 400 MG CAPSULE (FP) PO SCH ×3 (06:09→21:10)
[2017-06-15] MEDS: HYDROCHLOROTHIAZIDE 12.5 MG CAPSULE (FP) PO SCH (09:36)
[2017-06-15] MEDS: BUPRENORPHINE/NALOXONE 8 MG/2 MG FILM PACKET SL SCH (09:36)
[2017-06-15] MEDS: BACITRACIN 0.9 GM PACKET TP SCH ×2 (09:36→21:11)
[2017-06-15] MEDS: PRENATAL VITAMINS W/ FOLIC ACID TABLET (FP) PO SCH (09:36)
[2017-06-15] MEDS: NICOTINE 14 MG/24 HOURS TOPICAL PATCH TD SCH (09:36)
[2017-06-15] MEDS: QUEtiapine FUMARATE 50 MG TABLET PO SCH (21:10)
[2017-06-15] MEDS: THIAMINE HCL 100 MG TABLET (FP) PO SCH (21:10)
[2017-06-16] MEDS: NICOTINE POLACRILEX 4 MG GUM BUC PRN ×3 (06:27→21:11)
[2017-06-16] MEDS: GABAPENTIN 400 MG CAPSULE (FP) PO SCH ×3 (06:27→21:10)
[2017-06-16] MEDS: CYCLOBENZAPRINE HCL 10 MG TABLET (FP) PO SCH ×3 (06:27→21:09)
[2017-06-16] MEDS: NICOTINE 14 MG/24 HOURS TOPICAL PATCH TD SCH (09:42)
[2017-06-16] MEDS: PRENATAL VITAMINS W/ FOLIC ACID TABLET (FP) PO SCH (09:42)
[2017-06-16] MEDS: BUPRENORPHINE/NALOXONE 8 MG/2 MG FILM PACKET SL SCH (09:42)
[2017-06-16] MEDS: BACITRACIN 0.9 GM PACKET TP SCH ×2 (09:42→21:11)
[2017-06-16] MEDS: HYDROCHLOROTHIAZIDE 12.5 MG CAPSULE (FP) PO SCH (09:42)
[2017-06-16] MEDS: THIAMINE HCL 100 MG TABLET (FP) PO SCH (21:10)
[2017-06-16] MEDS: QUEtiapine FUMARATE 50 MG TABLET PO SCH (21:10)
[2017-06-17] MEDS: CYCLOBENZAPRINE HCL 10 MG TABLET (FP) PO SCH (06:35)
[2017-06-17] MEDS: GABAPENTIN 400 MG CAPSULE (FP) PO SCH (06:35)
[2017-06-17] MEDS: NICOTINE POLACRILEX 4 MG GUM BUC PRN (06:35)
[2017-06-17 06:42] VITALS: BP 102/72; PULSE 71; TEMP 97.6
[2017-06-17] MEDS: HYDROCHLOROTHIAZIDE 12.5 MG CAPSULE (FP) PO SCH (09:56)
[2017-06-17] MEDS: BACITRACIN 0.9 GM PACKET TP SCH (09:56)
[2017-06-17] MEDS: BUPRENORPHINE/NALOXONE 8 MG/2 MG FILM PACKET SL SCH (09:56)
[2017-06-17] MEDS: PRENATAL VITAMINS W/ FOLIC ACID TABLET (FP) PO SCH (09:56)
[2017-06-17] MEDS: NICOTINE 14 MG/24 HOURS TOPICAL PATCH TD SCH (09:57)
--- NOTE | 2017-06-17 10:06 | PN ---
Psychiatric Progress Note Vital Signs: Vital Signs Period Temp Pulse Resp BP Sys/[place] Pulse Ox Last 24 Hr 97.6 F 71 18-18 102/72 Date of Session: 06/17/17 Chief Complaint:: Discharge visit. HPI: Patient addressed Opioid dependence ,Cocaine and Alcohol dependence comorbid with PTSD,substance induced mood disorder. Current Medications: Active Medications Generic Name Dose Route Start Last Admin Trade Name Freq PRN Reason Stop Dose Admin Al Hydroxide/Mg Hydroxide 30 ml 05/20/17 15:37 06/14/17 10:40 Mylanta Oral Suspension - PO 30 ml Q6H PRN Administration DYSPEPSIA Bacitracin 0.9 gm 06/05/17 22:00 06/17/17 09:56 Bacitracin - TP 0.9 gm BID REBECCA Administration Buprenorphine/Naloxone 1 each 06/10/17 10:30 06/17/17 09:56 Suboxone 8mg/2mg Sl Film - SL 1 each DAILY REBECCA Administration Cyclobenzaprine HCl 10 mg 05/22/17 14:00 06/17/17 06:35 Flexeril - PO 10 mg TID REBECCA Administration Eucalyptus/Menthol/Phenol/Sorbitol 1 each 05/20/17 15:37 Cepastat Lozenge - MM Q4H PRN SORE THROAT Gabapentin 400 mg 06/14/17 22:00 06/17/17 06:35 Neurontin - PO 400 mg TID REBECCA Administration Guaifenesin 10 ml 05/20/17 15:37 Robitussin Dm - PO Q6H PRN COUGH Hydrochlorothiazide 12.5 mg 05/27/17 13:45 06/17/17 09:56 Hctz - PO 12.5 mg DAILY REBECCA Administration Loperamide HCl 4 mg 05/20/17 15:37 Imodium - PO Q6H PRN DIARRHEA Magnesium Citrate 300 ml 05/20/17 15:37 Citroma - PO Q48H PRN CONSTIPATION Magnesium Hydroxide 30 ml 05/20/17 15:37 06/11/17 09:57 Milk Of Magnesia - PO 30 ml DAILY PRN Administration CONSTIPATION Nicotine 14 mg 05/21/17 10:00 06/17/17 09:57 Nicoderm Patch - TD Not Given DAILY REBECCA Nicotine Polacrilex 4 mg 06/06/17 12:59 06/17/17 06:35 Nicorette Gum - BUC 4 mg Q2H PRN Administration NICOTINE REPLACEMENT RX Multivit/Folic Acid/Iron 1 tab 05/21/17 10:00 06/17/17 09:56 Vitamins (Sjr) - PO 1 tab DAILY REBECCA Administration Pseudoephedrine/Triprolidine 1 combo 05/20/17 15:37 Actifed - PO TID PRN NASAL CONGESTION Quetiapine Fumarate 150 mg 05/21/17 22:00 06/16/17 21:10 Seroquel - PO 150 mg HS REBECCA Administration Thiamine HCl 100 mg 05/20/17 22:00 06/16/17 21:10 Vitamin B1 - PO 100 mg HS REBECCA Administration Current Side Effect: No Lab tests ordered: No Lab tests reviewed: Yes Provider note:: Seroquel 150 mg po hs and Neurontin 400 mg po tid,[facility] [place] Total face to face time:: 30 Mental Status Exam - Mental Status Exam Alert and Oriented to: Time, Place, Person Cognitive Function: Grossly Intact Patient Appearance: Well Groomed Mood: Hopeful, Euthymic Affect: Appropriate, Mood Congruent Patient Behavior: Cooperative Speech Pattern: Clear Voice Loudness: Normal Thought Process: Goal Oriented Thought Disorder: Not Present Hallucinations: Denies Suicidal Ideation: Denies Homicidal Ideation: Denies Insight/Judgement: Fair Sleep: Fair Appetite: Good Muscle strength/Tone: Normal Gait/Station: Normal Psychiatric Treatment Plan - Problem List (1) Nicotine dependence Current Visit: Yes Qualifiers: Nicotine product type: cigarettes Substance use status: in withdrawal Qualified Code(s): F17.213 - Nicotine dependence, cigarettes, with withdrawal (2) Opioid dependence Current Visit: Yes (3) Alcohol dependence Current Visit: Yes (4) Substance induced mood disorder Current Visit: Yes (5) Cocaine dependence Current Visit: No Qualifiers: Substance use status: uncomplicated Qualified Code(s): F14.20 - Cocaine dependence, uncomplicated (6) Post traumatic stress disorder (PTSD) Current Visit: Yes
--- NOTE | 2017-06-17 10:18 | PN ---
BHS Progress Note (SOAP) Subjective: stable on current dose psuboxone 8mg daily Objective: 06/17/17 10:17 Vital Signs - 24 hr 06/17/17 06/17/17 03:30 06:41 Temperature 97.6 F Pulse Rate 71 Respiratory 18 18 Rate Blood Pressure 102/72 Laboratory Tests 05/20/17 05/21/17 05/21/17 22:50 07:30 07:30 WBC 4.9 D RBC 4.99 Hgb 14.1 Hct 42.4 MCV 85.0 MCH 28.2 MCHC 33.2 RDW 14.0 Plt Count 179 D MPV 10.5 Sodium 140 Potassium 4.6 Chloride 103 Carbon Dioxide 30 Anion Gap 7 L BUN 19 H Creatinine 0.9 Creat Clearance w eGFR > 60 Random Glucose 74 Calcium 8.9 Total Bilirubin 0.5 AST 52 H ALT 86 H D Alkaline Phosphatase 69 D Total Protein 7.6 Albumin 3.8 Urine Color Ltyellow Urine Appearance Clear Urine pH 8.0 D Ur Specific [place] 1.010 Urine Protein Negative Urine Glucose (UA) Negative Urine Ketones Negative Urine Blood Negative Urine Nitrite Negative Urine Bilirubin Negative Urine Urobilinogen Negative Ur Leukocyte Esterase Negative RPR Titer 05/21/17 07:30 WBC RBC Hgb Hct MCV MCH MCHC RDW Plt Count MPV Sodium Potassium Chloride Carbon Dioxide Anion Gap BUN Creatinine Creat Clearance w eGFR Random Glucose Calcium Total Bilirubin AST ALT Alkaline Phosphatase Total Protein Albumin Urine Color Urine Appearance Urine pH Ur Specific [place] Urine Protein Urine Glucose (UA) Urine Ketones Urine Blood Urine Nitrite Urine Bilirubin Urine Urobilinogen Ur Leukocyte Esterase RPR Titer Nonreactive Assessment: 06/17/17 10:18 oud - no withdrawal sx, cont suboxone 8mg daily, f/u arranged
== END 2017-06-17 10:45 | disposition home or self-care (01) | DRG 772 ==
LOC: YASAS 12:20 → Y5N 17:17
PROVIDERS: ADMIT Psychiatry & Neurology Psychiatry; ATTEND Psychiatry & Neurology Psychiatry
PROC: HZ42ZZZ Group Counseling for Substance Abuse Treatment, Cognitive-Behavioral (ICD-10-PCS; principal; 2017-05-27)
DX: F11.23 Opioid dependence with withdrawal (principal); F10.230 Alcohol dependence with withdrawal, uncomplicated; F13.20 Sedative, hypnotic or anxiolytic dependence, uncomplicated; F14.20 Cocaine dependence, uncomplicated; F17.213 Nicotine dependence, cigarettes, with withdrawal; F31.81 Bipolar II disorder; F19.24 Other psychoactive substance dependence with psychoactive substance-induced mood disorder; F19.282 Other psychoactive substance dependence with psychoactive substance-induced sleep disorder; F43.10 Post-traumatic stress disorder, unspecified; F41.9 Anxiety disorder, unspecified; Z63.4 Disappearance and death of family member; G62.9 Polyneuropathy, unspecified; M54.41 Lumbago with sciatica, right side; G89.29 Other chronic pain; B18.2 Chronic viral hepatitis C; M25.472 Effusion, left ankle; M25.471 Effusion, right ankle; Q18.1 Preauricular sinus and cyst; Z91.013 Allergy to seafood; Z86.69 Personal history of other diseases of the nervous system and sense organs
CPT/HCPCS: 36415; 80053; 81003; 85027; 86593; 93005; 93010; J0735

== ENCOUNTER 2017-08-29 11:49 | Inpatient (IN) | payer OTHER ==
[2017-08-29 13:14] VITALS: BMI 28.0
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
[2017-08-29] MEDS ORDERED: chlordiazePOXIDE HCL 25 MG CAPSULE PO ONE (17:36)
[2017-08-29] MEDS ORDERED: ACETAMINOPHEN 325 MG TABLET (FP) PO PRN (17:36)
[2017-08-29] MEDS ORDERED: MENTHOL/PHENOL 1 EACH UD MM PRN (17:36)
[2017-08-29] MEDS ORDERED: chlordiazePOXIDE HCL 25 MG CAPSULE PO PRN (17:36)
[2017-08-29] MEDS ORDERED: IBUPROFEN 400 MG TABLET (FP) PO PRN (17:36)
[2017-08-29] MEDS ORDERED: METHADONE HCL 10 MG TABLET (FOR DETOX USE ONLY) PO ONE ×2 (17:36→23:00)
[2017-08-29] MEDS ORDERED: MAGNESIUM CITRATE 300 ML BOTTLE PO PRN (17:36)
[2017-08-29] MEDS ORDERED: P-EPHED 60MG/TRIPROLIDI 2.5MG TABLET PO PRN (17:36)
[2017-08-29] MEDS ORDERED: MAGNESIUM HYDROX 2400MG/30ML ORAL SUSPENSION 30 ML CUP PO PRN (17:36)
[2017-08-29] MEDS ORDERED: hydrOXYzine PAMOATE 50 MG CAPSULE (FP) PO PRN (17:36)
[2017-08-29] MEDS ORDERED: MAG HYDROX/AL HYDROX/SIMETH 30 ML UNIT-DOSE CUP PO PRN (17:36)
[2017-08-29] MEDS ORDERED: guaiFENesin/D-METHORPHAN HB 10 ML UNIT-DOSE CUPS PO PRN (17:36)
[2017-08-29] MEDS ORDERED: LOPERAMIDE HCL 2 MG CAPSULE PO PRN (17:36)
[2017-08-29] MEDS ORDERED: MELATONIN 5 MG TABLETS PO PRN (22:00)
[2017-08-29 22:44] LABS: URINE APPEARANCE TURBID; URINE BILIRUBIN NEGATIVE (<2.0 mg/dL); URINE COLOR YELLOW; URINE GLUCOSE (UA) NEGATIVE (NEGATIVE); URINE KETONE NEGATIVE (NEGATIVE); URINE LEUK ESTERASE NEGATIVE (NEGATIVE); URINE NITRITE NEGATIVE (NEGATIVE); URINE PROTEIN NEGATIVE (NEGATIVE)
[2017-08-29] MEDS: chlordiazePOXIDE HCL 25 MG CAPSULE PO SCH (22:52)
[2017-08-29] MEDS: THIAMINE HCL 100 MG TABLET (FP) PO SCH (22:53)
[2017-08-29] MEDS: GABAPENTIN 400 MG CAPSULE (FP) PO SCH (22:53)
[2017-08-30] MEDS: GABAPENTIN 400 MG CAPSULE (FP) PO SCH ×3 (05:43→22:14)
[2017-08-30] MEDS: chlordiazePOXIDE HCL 25 MG CAPSULE PO SCH ×4 (05:43→22:14)
[2017-08-30] MEDS ORDERED: METHADONE HCL 10 MG TABLET (FOR DETOX USE ONLY) PO SCH (10:00)
[2017-08-30 10:08] LABS: HEMATOCRIT 40.6 % (35.4-49); HEMOGLOBIN 13.8 GM/dL (11.7-16.9); MCH 29.1 pg (25.7-33.7); MCHC 33.8 g/dl (32.0-35.9); MEAN CELL VOLUME 85.9 fl (80-96); MEAN PLT VOLUME 11.9 fl (7.5-11.1); PLATELET COUNT 198 K/MM3 (134-434); RBC 4.73 M/mm3 (4.00-5.60); RDW 13.3 % (11.9-15.9)
[2017-08-30 10:19] LABS: CHLORIDE 105 mmol/L (98-107); POTASSIUM 4.7 mmol/L (3.5-5.1); SODIUM 140 mmol/L (136-145)
[2017-08-30] MEDS: PRENATAL VITAMINS W/ FOLIC ACID TABLET (FP) PO SCH (10:21)
[2017-08-30 10:36] LABS: ALK PHOS 72 U/L (45-117); ANION GAP 6 (8-16); BILIRUBIN,TOTAL 0.7 mg/dL (0.2-1.0); BLOOD UREA NITROGEN 17 mg/dL (7-18); CALCIUM 8.8 mg/dL (8.5-10.1); CO2 29 mmol/L (21-32); CREATININE 1.1 mg/dL (0.7-1.3); GLUCOSE,RANDOM 86 mg/dL (74-106); SGOT/AST 22 U/L (15-37); SGPT/ALT 28 U/L (12-78); TOT PROT 8.1 g/dl (6.4-8.2)
--- NOTE | 2017-08-30 11:29 | EKG ---
Test Reason : Blood Pressure : / mmHG Vent. Rate : 056 BPM Atrial Rate : 056 BPM P-R Int : 132 ms QRS Dur : 088 ms QT Int : 430 ms P-R-T Axes : 053 033 000 degrees QTc Int : 414 ms SINUS BRADYCARDIA Confirmed by SLOAN LOVE MD ([id number]) on 08/30/2017 11:28:44 AM Referred By: Confirmed By:SLOAN LOVE MD
[2017-08-30] MEDS: NICOTINE POLACRILEX 4 MG GUM BC PRN ×2 (13:39→22:15)
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
[2017-08-30] MEDS ORDERED: TRIMETHOBENZAMIDE HCL 200MG/2ML INJ IM PRN (16:46)
--- NOTE | 2017-08-30 16:48 | PN ---
S CIWA - CIWA Score Nausea/Vomitin Muscle Tremors: 3 Anxiety: 4-Mod. Anxious/Guarded Agitation: 4-Moderately Restless Paroxysmal Sweats: No Perspiration Orientation: 2-Disoriented Date<2 days Tacttile Disturbances: 0-None Auditory Disturbances: 0-None Visual Disturbances: 0-None Headache: 0-None Present CIWA-Ar Total Score: 18 BHS COWS - Scale Resting Pulse: 0= [place] 80 or Below Sweatin= Chills/Flushing Restless Observation: 1= Difficult to Sit Still Pupil Size: 0= Normal to Room Light Bone or Joint Aches: 2= Severe Diffuse Aches Runny Nose/ Eye Tearin= None GI Upset > 30mins: 2= Nausea/Diarrhea Tremor Observation of Outstretched Hands: 2= Slight Tremor Visible Yawning Observation: 1= 1-2x During Session Anxiety or Irritability: 2=Irritable/Anxious Goose Flesh Skin: 3=Piloerection COWS Score: 14 BHS Progress Note (SOAP) Subjective: Nausea, Body Aches, Tremors, Interrupted Sleep, Fatigue. Objective: PATIENT A & O X 2 (UNCERTAIN ABOUT CURRENT DAY / DATE). PATIENT OBSERVED AMBULATING ON UNIT. NO ACUTE DISTRESS. 08/30/17 16:47 Vital Signs Temperature 97.1 F L 08/30/17 13:14 Pulse Rate 79 08/30/17 13:14 Respiratory Rate 18 08/30/17 13:14 Blood Pressure 96/60 08/30/17 13:14 O2 Sat by Pulse Oximetry (%) Laboratory Tests 08/29/17 08/29/17 08/30/17 15:07 22:30 05:50 WBC 5.0 RBC 4.73 Hgb 13.8 Hct 40.6 MCV 85.9 MCH 29.1 MCHC 33.8 RDW 13.3 Plt Count 198 MPV 11.9 H D Sodium Potassium Chloride Carbon Dioxide Anion Gap BUN Creatinine Creat Clearance w eGFR Random Glucose Calcium Total Bilirubin AST ALT Alkaline Phosphatase Total Protein Albumin Urine Color Yellow Urine Appearance Turbid Urine pH 5.0 D Ur Specific [place] 1.032 Urine Protein Negative Urine Glucose (UA) Negative Urine Ketones Negative Urine Blood Negative Urine Nitrite Negative Urine Bilirubin Negative Urine Urobilinogen 2.0 Ur Leukocyte Esterase Negative RPR Titer HIV 1&2 Antibody Screen Negative HIV P24 Antigen Negative 08/30/17 08/30/17 05:50 05:50 WBC RBC Hgb Hct MCV MCH MCHC RDW Plt Count MPV Sodium 140 Potassium 4.7 Chloride 105 Carbon Dioxide 29 Anion Gap 6 L BUN 17 Creatinine 1.1 D Creat Clearance w eGFR > 60 Random Glucose 86 Calcium 8.8 Total Bilirubin 0.7 D AST 22 D ALT 28 D Alkaline Phosphatase 72 Total Protein 8.1 Albumin 4.0 Urine Color Urine Appearance Urine pH Ur Specific [place] Urine Protein Urine Glucose (UA) Urine Ketones Urine Blood Urine Nitrite Urine Bilirubin Urine Urobilinogen Ur Leukocyte Esterase RPR Titer Nonreactive HIV 1&2 Antibody Screen HIV P24 Antigen LABS NOTED. Assessment: 08/30/17 16:48 WITHDRAWAL SYMPTOMS. Plan: CONTINUE DETOX. PRN TIGAN IM FOR NAUSEA.
[2017-08-30] MEDS: THIAMINE HCL 100 MG TABLET (FP) PO SCH (22:14)
[2017-08-30] MEDS: ZOLPIDEM TARTRATE 10 MG TABLET (PARK CARE ONLY) PO PRN (22:14)
[2017-08-31] MEDS: chlordiazePOXIDE HCL 25 MG CAPSULE PO SCH ×3 (05:36→17:50)
[2017-08-31] MEDS: GABAPENTIN 400 MG CAPSULE (FP) PO SCH ×3 (05:36→22:50)
[2017-08-31] MEDS: PRENATAL VITAMINS W/ FOLIC ACID TABLET (FP) PO SCH (10:45)
[2017-08-31] MEDS: METHADONE HCL 5 MG TABLET (FOR DETOX USE ONLY) PO SCH (10:45)
--- NOTE | 2017-08-31 15:08 | PN ---
[facility] CIWA - CIWA Score Nausea/Vomitin-No Nausea/No Vomiting Muscle Tremors: 3 Anxiety: 5 Agitation: 4-Moderately Restless Paroxysmal Sweats: 3 Orientation: 0-Oriented Tacttile Disturbances: 2-Mild Itch/Numbness/Burn Auditory Disturbances: 0-None Visual Disturbances: 0-None Headache: 0-None Present CIWA-Ar Total Score: 17 BHS COWS - Scale Resting Pulse: 0= [place] 80 or Below Sweatin=Flushed/Facial Moisture Restless Observation: 1= Difficult to Sit Still Pupil Size: 0= Normal to Room Light Bone or Joint Aches: 2= Severe Diffuse Aches Runny Nose/ Eye Tearin= None GI Upset > 30mins: 2= Nausea/Diarrhea Tremor Observation of Outstretched Hands: 2= Slight Tremor Visible Yawning Observation: 0= None Anxiety or Irritability: 4=Extreme Anxiety Goose Flesh Skin: 3=Piloerection COWS Score: 16 BHS Progress Note (SOAP) Subjective: Tremors, Diarrhea, Body aches, Anxious, Interrupted sleep, Stomach Cramping, Sweating, Nausea. Objective: PATIENT A & O X 3, OBSERVED AMBULATING ON UNIT. NO ACUTE DISTRESS. 08/31/17 15:07 Vital Signs Temperature 96.7 F L 08/31/17 14:58 Pulse Rate 61 08/31/17 14:58 Respiratory Rate 18 08/31/17 14:58 Blood Pressure 129/66 08/31/17 14:58 O2 Sat by Pulse Oximetry (%) Laboratory Tests 08/29/17 08/29/17 08/30/17 15:07 22:30 05:50 WBC 5.0 RBC 4.73 Hgb 13.8 Hct 40.6 MCV 85.9 MCH 29.1 MCHC 33.8 RDW 13.3 Plt Count 198 MPV 11.9 H D Sodium Potassium Chloride Carbon Dioxide Anion Gap BUN Creatinine Creat Clearance w eGFR Random Glucose Calcium Total Bilirubin AST ALT Alkaline Phosphatase Total Protein Albumin Urine Color Yellow Urine Appearance Turbid Urine pH 5.0 D Ur Specific [place] 1.032 Urine Protein Negative Urine Glucose (UA) Negative Urine Ketones Negative Urine Blood Negative Urine Nitrite Negative Urine Bilirubin Negative Urine Urobilinogen 2.0 Ur Leukocyte Esterase Negative RPR Titer HIV 1&2 Antibody Screen Negative HIV P24 Antigen Negative 08/30/17 08/30/17 05:50 05:50 WBC RBC Hgb Hct MCV MCH MCHC RDW Plt Count MPV Sodium 140 Potassium 4.7 Chloride 105 Carbon Dioxide 29 Anion Gap 6 L BUN 17 Creatinine 1.1 D Creat Clearance w eGFR > 60 Random Glucose 86 Calcium 8.8 Total Bilirubin 0.7 D AST 22 D ALT 28 D Alkaline Phosphatase 72 Total Protein 8.1 Albumin 4.0 Urine Color Urine Appearance Urine pH Ur Specific [place] Urine Protein Urine Glucose (UA) Urine Ketones Urine Blood Urine Nitrite Urine Bilirubin Urine Urobilinogen Ur Leukocyte Esterase RPR Titer Nonreactive HIV 1&2 Antibody Screen HIV P24 Antigen LABS NOTED. Assessment: 08/31/17 15:08 WITHDRAWAL SYMPTOMS. Plan: CONTINUE DETOX. INCREASE DAILY PO FLUID INTAKE. PRN FLEXERIL PO FOR BODY ACHES / MUSCLE SPASMS.
[2017-08-31] MEDS: CYCLOBENZAPRINE HCL 10 MG TABLET (FP) PO PRN (22:50)
[2017-08-31] MEDS: THIAMINE HCL 100 MG TABLET (FP) PO SCH (22:50)
[2017-08-31] MEDS: chlordiazePOXIDE 5 MG CAPSULE PO SCH (22:50)
[2017-08-31] MEDS: ZOLPIDEM TARTRATE 10 MG TABLET (PARK CARE ONLY) PO PRN (22:50)
[2017-08-31] MEDS: NICOTINE POLACRILEX 4 MG GUM BC PRN (22:52)
[2017-09-01] MEDS: chlordiazePOXIDE 5 MG CAPSULE PO SCH ×3 (05:45→17:30)
[2017-09-01] MEDS: NICOTINE POLACRILEX 4 MG GUM BC PRN ×5 (05:48→22:41)
[2017-09-01] MEDS: GABAPENTIN 400 MG CAPSULE (FP) PO SCH ×3 (05:48→22:41)
[2017-09-01] MEDS: METHADONE HCL 5 MG TABLET (FOR DETOX USE ONLY) PO SCH (10:29)
[2017-09-01] MEDS: PRENATAL VITAMINS W/ FOLIC ACID TABLET (FP) PO SCH (10:29)
[2017-09-01] MEDS: CYCLOBENZAPRINE HCL 10 MG TABLET (FP) PO PRN ×2 (10:32→22:44)
--- NOTE | 2017-09-01 15:40 | PN ---
BHS Progress Note (SOAP) Subjective: Stomach ache, chills, interrupted sleep, anxiety Objective: 09/01/17 15:38 Last Vital Signs Temp Pulse Resp BP Pulse Ox 96.4 F L 76 18 110/74 09/01/17 15:13 09/01/17 15:13 09/01/17 15:13 09/01/17 15:13 Laboratory Tests 08/29/17 08/29/17 08/30/17 15:07 22:30 05:50 WBC 5.0 RBC 4.73 Hgb 13.8 Hct 40.6 MCV 85.9 MCH 29.1 MCHC 33.8 RDW 13.3 Plt Count 198 MPV 11.9 H D Sodium Potassium Chloride Carbon Dioxide Anion Gap BUN Creatinine Creat Clearance w eGFR Random Glucose Calcium Total Bilirubin AST ALT Alkaline Phosphatase Total Protein Albumin Urine Color Yellow Urine Appearance Turbid Urine pH 5.0 D Ur Specific [place] 1.032 Urine Protein Negative Urine Glucose (UA) Negative Urine Ketones Negative Urine Blood Negative Urine Nitrite Negative Urine Bilirubin Negative Urine Urobilinogen 2.0 Ur Leukocyte Esterase Negative RPR Titer HIV 1&2 Antibody Screen Negative HIV P24 Antigen Negative 08/30/17 08/30/17 05:50 05:50 WBC RBC Hgb Hct MCV MCH MCHC RDW Plt Count MPV Sodium 140 Potassium 4.7 Chloride 105 Carbon Dioxide 29 Anion Gap 6 L BUN 17 Creatinine 1.1 D Creat Clearance w eGFR > 60 Random Glucose 86 Calcium 8.8 Total Bilirubin 0.7 D AST 22 D ALT 28 D Alkaline Phosphatase 72 Total Protein 8.1 Albumin 4.0 Urine Color Urine Appearance Urine pH Ur Specific [place] Urine Protein Urine Glucose (UA) Urine Ketones Urine Blood Urine Nitrite Urine Bilirubin Urine Urobilinogen Ur Leukocyte Esterase RPR Titer Nonreactive HIV 1&2 Antibody Screen HIV P24 Antigen Labs reviewed Assessment: 09/01/17 15:39 Withdrawal symptoms Plan: Continue detox Encouraged PO water hydration
[2017-09-01] MEDS: THIAMINE HCL 100 MG TABLET (FP) PO SCH (22:41)
[2017-09-01] MEDS: chlordiazePOXIDE HCL 10 MG CAPSULE PO SCH (22:41)
[2017-09-01] MEDS: ZOLPIDEM TARTRATE 10 MG TABLET (PARK CARE ONLY) PO PRN (22:42)
[2017-09-02] MEDS: GABAPENTIN 400 MG CAPSULE (FP) PO SCH ×3 (05:55→22:37)
[2017-09-02] MEDS: chlordiazePOXIDE HCL 10 MG CAPSULE PO SCH ×3 (05:55→18:08)
[2017-09-02] MEDS: NICOTINE POLACRILEX 4 MG GUM BC PRN ×2 (05:57→10:47)
[2017-09-02] MEDS ORDERED: METHADONE HCL 10 MG TABLET (FOR DETOX USE ONLY) PO SCH (10:00)
[2017-09-02] MEDS: PRENATAL VITAMINS W/ FOLIC ACID TABLET (FP) PO SCH (10:46)
[2017-09-02] MEDS: CYCLOBENZAPRINE HCL 10 MG TABLET (FP) PO PRN ×2 (10:47→22:37)
--- NOTE | 2017-09-02 16:53 | PN ---
BHS Progress Note (SOAP) Subjective: Sleep disturbance Sweats Shakes Abd cramps Objective: 09/02/17 16:51 A & O x 3 In hallway, chatting with other patients Not in distress Vital Signs Temperature 98.2 F 09/02/17 13:11 Pulse Rate 69 09/02/17 13:11 Respiratory Rate 18 09/02/17 13:11 Blood Pressure 125/75 09/02/17 13:11 O2 Sat by Pulse Oximetry (%) Assessment: 09/02/17 16:52 withdrawal sx Plan: continue detox continue hydration
[2017-09-02] MEDS: ZOLPIDEM TARTRATE 10 MG TABLET (PARK CARE ONLY) PO PRN (21:30)
[2017-09-02] MEDS: THIAMINE HCL 100 MG TABLET (FP) PO SCH (22:37)
[2017-09-03] MEDS ORDERED: METHADONE HCL 5 MG TABLET (FOR DETOX USE ONLY) PO SCH (06:00)
[2017-09-03] MEDS: GABAPENTIN 400 MG CAPSULE (FP) PO SCH (06:06)
[2017-09-03] MEDS: NICOTINE POLACRILEX 4 MG GUM BC PRN ×2 (06:06→10:41)
[2017-09-03 09:23] VITALS: BP 111/76; PULSE 91; TEMP 95.7
[2017-09-03] MEDS: PRENATAL VITAMINS W/ FOLIC ACID TABLET (FP) PO SCH (10:41)
--- NOTE | 2017-09-03 15:20 | PN ---
S Progress Note (SOAP) Subjective: Patient denies current Detox symptoms and reports that he feels well overall. Objective: PATIENT A & O X 3, OBSERVED AMBULATING ON UNIT. NO ACUTE DISTRESS. 09/03/17 15:19 Vital Signs Temperature 95.7 F L 09/03/17 09:22 Pulse Rate 91 H 09/03/17 09:22 Respiratory Rate 18 09/03/17 09:22 Blood Pressure 111/76 09/03/17 09:22 O2 Sat by Pulse Oximetry (%) Laboratory Tests 08/29/17 08/29/17 08/30/17 15:07 22:30 05:50 WBC 5.0 RBC 4.73 Hgb 13.8 Hct 40.6 MCV 85.9 MCH 29.1 MCHC 33.8 RDW 13.3 Plt Count 198 MPV 11.9 H D Sodium Potassium Chloride Carbon Dioxide Anion Gap BUN Creatinine Creat Clearance w eGFR Random Glucose Calcium Total Bilirubin AST ALT Alkaline Phosphatase Total Protein Albumin Urine Color Yellow Urine Appearance Turbid Urine pH 5.0 D Ur Specific [place] 1.032 Urine Protein Negative Urine Glucose (UA) Negative Urine Ketones Negative Urine Blood Negative Urine Nitrite Negative Urine Bilirubin Negative Urine Urobilinogen 2.0 Ur Leukocyte Esterase Negative RPR Titer HIV 1&2 Antibody Screen Negative HIV P24 Antigen Negative 08/30/17 08/30/17 05:50 05:50 WBC RBC Hgb Hct MCV MCH MCHC RDW Plt Count MPV Sodium 140 Potassium 4.7 Chloride 105 Carbon Dioxide 29 Anion Gap 6 L BUN 17 Creatinine 1.1 D Creat Clearance w eGFR > 60 Random Glucose 86 Calcium 8.8 Total Bilirubin 0.7 D AST 22 D ALT 28 D Alkaline Phosphatase 72 Total Protein 8.1 Albumin 4.0 Urine Color Urine Appearance Urine pH Ur Specific [place] Urine Protein Urine Glucose (UA) Urine Ketones Urine Blood Urine Nitrite Urine Bilirubin Urine Urobilinogen Ur Leukocyte Esterase RPR Titer Nonreactive HIV 1&2 Antibody Screen HIV P24 Antigen LABS NOTED. Assessment: 09/03/17 15:19 COMPLETION OF DETOX REGIMEN. Plan: PATIENT SCHEDULED FOR DISCHARGE FROM DETOX UNIT TODAY. PATIENT KARI FABIAN [facility] FOR [place]CARE.
--- NOTE | 2017-09-03 15:25 | DS ---
[facility] Detox Discharge Summary Admission Date: 08/29/17 Discharge Date: 09/03/17 - History Present History: Alcohol Dependence, Cocaine Dependence, Opioid Dependence Additional Comments: PATIENT GO[facility] ([place]CARE. PATIENT WAS DISCHARGED FROM DETOX UNIT IN STABLE MEDICAL CONDITION. Pertinent Past History: Anxiety, Bipolar Disorder, Nicotine Dependence, PTSD, Hep C, Bereavement, History of Seizures (due to Withdrawal), Neuropathy, Back Pain. - Physical Exam Results Vital Signs: Vital Signs Temperature 95.7 F L 09/03/17 09:22 Pulse Rate 91 H 09/03/17 09:22 Respiratory Rate 18 09/03/17 09:22 Blood Pressure 111/76 09/03/17 09:22 O2 Sat by Pulse Oximetry (%) Pertinent Admission Physical Exam Findings: WITHDRAWAL SYMPTOMS. Laboratory Tests 08/29/17 08/29/17 08/30/17 15:07 22:30 05:50 WBC 5.0 RBC 4.73 Hgb 13.8 Hct 40.6 MCV 85.9 MCH 29.1 MCHC 33.8 RDW 13.3 Plt Count 198 MPV 11.9 H D Sodium Potassium Chloride Carbon Dioxide Anion Gap BUN Creatinine Creat Clearance w eGFR Random Glucose Calcium Total Bilirubin AST ALT Alkaline Phosphatase Total Protein Albumin Urine Color Yellow Urine Appearance Turbid Urine pH 5.0 D Ur Specific [place] 1.032 Urine Protein Negative Urine Glucose (UA) Negative Urine Ketones Negative Urine Blood Negative Urine Nitrite Negative Urine Bilirubin Negative Urine Urobilinogen 2.0 Ur Leukocyte Esterase Negative RPR Titer HIV 1&2 Antibody Screen Negative HIV P24 Antigen Negative 08/30/17 08/30/17 05:50 05:50 WBC RBC Hgb Hct MCV MCH MCHC RDW Plt Count MPV Sodium 140 Potassium 4.7 Chloride 105 Carbon Dioxide 29 Anion Gap 6 L BUN 17 Creatinine 1.1 D Creat Clearance w eGFR > 60 Random Glucose 86 Calcium 8.8 Total Bilirubin 0.7 D AST 22 D ALT 28 D Alkaline Phosphatase 72 Total Protein 8.1 Albumin 4.0 Urine Color Urine Appearance Urine pH Ur Specific [place] Urine Protein Urine Glucose (UA) Urine Ketones Urine Blood Urine Nitrite Urine Bilirubin Urine Urobilinogen Ur Leukocyte Esterase RPR Titer Nonreactive HIV 1&2 Antibody Screen HIV P24 Antigen LABS NOTED. - Treatment Hospital Course: Detox Protocol Followed, Detoxed Safely, Responded well, Discharged Condition Good, Rehab Referral Accepted Patient has Accepted a Rehab Referral to: [facility] ([place] . - Medication Discharge Medications: Ambulatory Orders Gabapentin [Neurontin -] 400 mg PO TID #90 capsule 06/17/17 Quetiapine Fumarate [Seroquel -] 150 mg PO HS #90 tablet 06/17/17 - Diagnosis (1) Alcohol dependence with uncomplicated withdrawal Status: Acute (2) Chronic back pain Status: Chronic Qualifiers: Back pain location: back pain in unspecified location Back pain laterality : unspecified Qualified Code(s): M54.9 - Dorsalgia, unspecified; G89.29 - Other chronic pain (3) Hepatitis C Status: Chronic Qualifiers: Viral hepatitis chronicity: chronic Hepatic coma status: without hepatic coma Qualified Code(s): B18.2 - Chronic viral hepatitis C (4) Neuropathy Status: Chronic (5) Substance or medication-induced sleep disorder, insomnia type Status: Chronic (6) Cocaine dependence Status: Chronic Qualifiers: Substance use status: uncomplicated Qualified Code(s): F14.20 - Cocaine dependence, uncomplicated (7) Insomnia Status: Chronic Qualifiers: Insomnia type: unspecified Qualified Code(s): G47.00 - Insomnia, unspecified (8) Nicotine dependence Status: Chronic Qualifiers: Nicotine product type: cigarettes Substance use status: uncomplicated Qualified Code(s): F17.210 - Nicotine dependence, cigarettes, uncomplicated (9) Post traumatic stress disorder (PTSD) Status: Chronic (10) Bipolar disorder Status: Chronic Qualifiers: Active/Remission status: remission status unspecified Qualified Code(s): F31.9 - Bipolar disorder, unspecified (11) Opioid dependence with withdrawal Status: Acute (12) Bereavement Status: Acute - AMA Did Patient Leave Against Medical Advice: No
== END 2017-09-03 12:32 | disposition other institution (70) | DRG 773 ==
LOC: YASAS 11:49 → Y3N 17:13
PROVIDERS: ADMIT Internal Medicine; ATTEND Internal Medicine
PROC: HZ2ZZZZ Detoxification Services for Substance Abuse Treatment (ICD-10-PCS; principal; 2017-08-29)
DX: F11.23 Opioid dependence with withdrawal (principal); F10.230 Alcohol dependence with withdrawal, uncomplicated; F14.20 Cocaine dependence, uncomplicated; F17.213 Nicotine dependence, cigarettes, with withdrawal; F43.10 Post-traumatic stress disorder, unspecified; F31.9 Bipolar disorder, unspecified; F41.9 Anxiety disorder, unspecified; F51.05 Insomnia due to other mental disorder; F19.282 Other psychoactive substance dependence with psychoactive substance-induced sleep disorder; B18.2 Chronic viral hepatitis C; G62.9 Polyneuropathy, unspecified; M54.5 Low back pain; G89.29 Other chronic pain; Z63.4 Disappearance and death of family member; Z86.69 Personal history of other diseases of the nervous system and sense organs; Z87.828 Personal history of other (healed) physical injury and trauma
CPT/HCPCS: 36415; 80053; 81003; 85027; 86593; 87389; 93005; 93010

== ENCOUNTER 2017-09-03 13:23 | Inpatient (IN) | payer OTHER ==
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
[2017-09-03] MEDS ORDERED: MAGNESIUM HYDROX 2400MG/30ML ORAL SUSPENSION 30 ML CUP PO PRN (15:28)
[2017-09-03] MEDS ORDERED: P-EPHED 60MG/TRIPROLIDI 2.5MG TABLET PO PRN (15:28)
[2017-09-03] MEDS ORDERED: guaiFENesin/D-METHORPHAN HB 10 ML UNIT-DOSE CUPS PO PRN (15:28)
[2017-09-03] MEDS ORDERED: LOPERAMIDE HCL 2 MG CAPSULE PO PRN (15:28)
[2017-09-03] MEDS ORDERED: MENTHOL/PHENOL 1 EACH UD MM PRN (15:28)
[2017-09-03] MEDS ORDERED: MAGNESIUM CITRATE 300 ML BOTTLE PO PRN (15:28)
[2017-09-03] MEDS ORDERED: MAG HYDROX/AL HYDROX/SIMETH 30 ML UNIT-DOSE CUP PO PRN (15:28)
--- NOTE | 2017-09-03 15:34 | HP ---
[facility] Rehab Assess/Revision - Admission History Admitted to Rehab from: [facility] Date of Admission to Rehab: 09/03/2017 - Vital signs Vital Signs: Vital Signs Period Temp Pulse Resp BP Sys/[place] Pulse Ox Last 24 Hr 97.7 F 89 20 105/70 - Findings Detox History & Physical reviewed: Yes Concur with findings: Yes Comments/Additional Findings: PATIENT'S MEDICAL / MEDICATION HISTORY REVIEWED PRIOR TO DISCHARGE FROM DETOX UNIT. PATIENT WAS DISCHARGED FROM DETOX UNIT TO BE TAKEN TO REHAB UNIT IN STABLE MEDICAL CONDITION. Inpatient Rehab Admission - Initial Determination Are CD services needed?: Yes Free of communicable disease: Yes Not in need of hospitalization: Yes - Rehab Admission Criteria Previous failed treatment: Yes Comorbidities: Yes Patient is meeting Inpatient Rehab admission criteria:: Yes
[2017-09-03] MEDS: QUEtiapine FUMARATE 100 MG TABLET (FP) PO SCH (21:50)
[2017-09-03] MEDS: THIAMINE HCL 100 MG TABLET (FP) PO SCH (21:50)
[2017-09-03] MEDS ORDERED: MELATONIN 5 MG TABLETS PO PRN (22:00)
[2017-09-04] MEDS: NICOTINE POLACRILEX 4 MG GUM BUC PRN (06:09)
[2017-09-04] MEDS: PRENATAL VITAMINS W/ FOLIC ACID TABLET (FP) PO SCH (10:36)
--- NOTE | 2017-09-04 19:16 | PN ---
[facility] Progress Note Note: Patient presents with body-aches, anxiety and night sweats. Vital Signs Temperature 97.9 F 09/04/17 07:19 Pulse Rate 84 09/04/17 08:55 Respiratory Rate 18 09/04/17 07:19 Blood Pressure 111/57 09/04/17 08:55 O2 Sat by Pulse Oximetry (%) General: patient is alert and oriented x 3. In no acute distress. +anxious. Skin: warm and dry, intact. Ext: no edema, full ROM Neuro: CN 1-X11 intact A/P: Withdrawal syndrome: Will continue prn IBU/APAP increase oral fluids start Neurontin 400mg BID continue to monitor clinically
[2017-09-04] MEDS: THIAMINE HCL 100 MG TABLET (FP) PO SCH (21:51)
[2017-09-04] MEDS: QUEtiapine FUMARATE 100 MG TABLET (FP) PO SCH (21:51)
[2017-09-04] MEDS: GABAPENTIN 400 MG CAPSULE (FP) PO SCH (21:51)
[2017-09-05] MEDS: GABAPENTIN 400 MG CAPSULE (FP) PO SCH ×2 (10:36→21:48)
[2017-09-05] MEDS: PRENATAL VITAMINS W/ FOLIC ACID TABLET (FP) PO SCH (10:36)
[2017-09-05] MEDS: NICOTINE POLACRILEX 4 MG GUM BUC PRN ×2 (17:22→21:49)
[2017-09-05] MEDS: QUEtiapine FUMARATE 100 MG TABLET (FP) PO SCH (21:48)
[2017-09-05] MEDS: THIAMINE HCL 100 MG TABLET (FP) PO SCH (21:48)
[2017-09-06] MEDS: NICOTINE POLACRILEX 4 MG GUM BUC PRN ×4 (06:10→21:32)
[2017-09-06] MEDS: GABAPENTIN 400 MG CAPSULE (FP) PO SCH ×3 (10:34→21:31)
[2017-09-06] MEDS: PRENATAL VITAMINS W/ FOLIC ACID TABLET (FP) PO SCH (10:34)
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
[2017-09-06] MEDS: THIAMINE HCL 100 MG TABLET (FP) PO SCH (21:31)
[2017-09-06] MEDS: QUEtiapine FUMARATE 100 MG TABLET (FP) PO SCH (21:31)
[2017-09-07] MEDS: GABAPENTIN 400 MG CAPSULE (FP) PO SCH ×3 (06:17→21:50)
[2017-09-07] MEDS: NICOTINE POLACRILEX 4 MG GUM BUC PRN ×4 (06:17→21:51)
[2017-09-07] MEDS: PRENATAL VITAMINS W/ FOLIC ACID TABLET (FP) PO SCH (10:29)
[2017-09-07] MEDS: QUEtiapine FUMARATE 100 MG TABLET (FP) PO SCH (21:49)
[2017-09-07] MEDS: THIAMINE HCL 100 MG TABLET (FP) PO SCH (21:50)
[2017-09-08] MEDS: NICOTINE POLACRILEX 4 MG GUM BUC PRN ×4 (06:11→21:55)
[2017-09-08] MEDS: GABAPENTIN 400 MG CAPSULE (FP) PO SCH ×3 (06:11→21:54)
[2017-09-08] MEDS: PRENATAL VITAMINS W/ FOLIC ACID TABLET (FP) PO SCH (10:16)
[2017-09-08] MEDS: IBUPROFEN 400 MG TABLET (FP) PO PRN (14:52)
[2017-09-08] MEDS: THIAMINE HCL 100 MG TABLET (FP) PO SCH (21:53)
[2017-09-08] MEDS: QUEtiapine FUMARATE 100 MG TABLET (FP) PO SCH (21:54)
[2017-09-09] MEDS: GABAPENTIN 400 MG CAPSULE (FP) PO SCH ×3 (06:00→21:50)
[2017-09-09] MEDS: NICOTINE POLACRILEX 4 MG GUM BUC PRN ×4 (06:23→21:52)
[2017-09-09] MEDS: PRENATAL VITAMINS W/ FOLIC ACID TABLET (FP) PO SCH (10:22)
[2017-09-09] MEDS: IBUPROFEN 400 MG TABLET (FP) PO PRN ×2 (14:08→21:51)
[2017-09-09] MEDS: THIAMINE HCL 100 MG TABLET (FP) PO SCH (21:50)
[2017-09-09] MEDS: QUEtiapine FUMARATE 100 MG TABLET (FP) PO SCH (21:50)
[2017-09-10] MEDS: IBUPROFEN 400 MG TABLET (FP) PO PRN (06:25)
[2017-09-10] MEDS: GABAPENTIN 400 MG CAPSULE (FP) PO SCH ×3 (06:25→21:58)
[2017-09-10] MEDS: NICOTINE POLACRILEX 4 MG GUM BUC PRN ×3 (08:12→20:08)
[2017-09-10] MEDS: PRENATAL VITAMINS W/ FOLIC ACID TABLET (FP) PO SCH (10:37)
[2017-09-10] MEDS: ACETAMINOPHEN 325 MG TABLET (FP) PO PRN (10:38)
--- NOTE | 2017-09-10 12:44 | PN ---
[facility] Progress Note Note: c/o of back pain. Vital Signs Temperature 98.6 F 09/10/17 07:16 Pulse Rate 84 09/10/17 07:16 Respiratory Rate 18 09/10/17 07:16 Blood Pressure 108/67 09/10/17 07:16 O2 Sat by Pulse Oximetry (%) lidocaine patch qd tylenol PRN increase fluids ambulate continue to monitor
[2017-09-10] MEDS: LIDOCAINE 5% TOPICAL PATCH TP SCH (14:21)
[2017-09-10] MEDS: QUEtiapine FUMARATE 100 MG TABLET (FP) PO SCH (21:58)
[2017-09-10] MEDS: THIAMINE HCL 100 MG TABLET (FP) PO SCH (21:58)
[2017-09-10] MEDS: LIDOCAINE PATCH REMOVAL MC SCH (22:15)
[2017-09-11] MEDS: IBUPROFEN 400 MG TABLET (FP) PO PRN ×3 (07:06→21:26)
[2017-09-11] MEDS: GABAPENTIN 400 MG CAPSULE (FP) PO SCH ×3 (07:06→21:26)
[2017-09-11] MEDS: PRENATAL VITAMINS W/ FOLIC ACID TABLET (FP) PO SCH (10:09)
[2017-09-11] MEDS: LIDOCAINE 5% TOPICAL PATCH TP SCH (10:09)
[2017-09-11] MEDS: NICOTINE POLACRILEX 4 MG GUM BUC PRN ×2 (10:10→21:27)
[2017-09-11] MEDS: THIAMINE HCL 100 MG TABLET (FP) PO SCH (21:26)
[2017-09-11] MEDS: QUEtiapine FUMARATE 100 MG TABLET (FP) PO SCH (21:26)
[2017-09-11] MEDS: LIDOCAINE PATCH REMOVAL MC SCH (21:27)
[2017-09-12] MEDS: IBUPROFEN 400 MG TABLET (FP) PO PRN ×3 (06:08→21:52)
[2017-09-12] MEDS: GABAPENTIN 400 MG CAPSULE (FP) PO SCH ×3 (06:08→21:52)
[2017-09-12] MEDS: LIDOCAINE 5% TOPICAL PATCH TP SCH (10:27)
[2017-09-12] MEDS: PRENATAL VITAMINS W/ FOLIC ACID TABLET (FP) PO SCH (10:27)
[2017-09-12] MEDS: NICOTINE POLACRILEX 4 MG GUM BUC PRN (13:01)
[2017-09-12] MEDS: THIAMINE HCL 100 MG TABLET (FP) PO SCH (21:51)
[2017-09-12] MEDS: QUEtiapine FUMARATE 100 MG TABLET (FP) PO SCH (21:51)
[2017-09-12] MEDS: LIDOCAINE PATCH REMOVAL MC SCH (21:52)
[2017-09-13] MEDS: GABAPENTIN 400 MG CAPSULE (FP) PO SCH ×3 (06:25→21:45)
[2017-09-13] MEDS: NICOTINE POLACRILEX 4 MG GUM BUC PRN ×4 (06:26→21:47)
[2017-09-13] MEDS: IBUPROFEN 400 MG TABLET (FP) PO PRN ×3 (06:26→21:46)
[2017-09-13] MEDS: PRENATAL VITAMINS W/ FOLIC ACID TABLET (FP) PO SCH (10:31)
[2017-09-13] MEDS: LIDOCAINE 5% TOPICAL PATCH TP SCH (10:31)
[2017-09-13] MEDS: QUEtiapine FUMARATE 100 MG TABLET (FP) PO SCH (21:45)
[2017-09-13] MEDS: THIAMINE HCL 100 MG TABLET (FP) PO SCH (21:45)
[2017-09-13] MEDS: LIDOCAINE PATCH REMOVAL MC SCH (21:46)
[2017-09-14] MEDS: GABAPENTIN 400 MG CAPSULE (FP) PO SCH ×3 (06:12→21:37)
[2017-09-14] MEDS: IBUPROFEN 400 MG TABLET (FP) PO PRN ×2 (06:12→21:37)
[2017-09-14] MEDS: LIDOCAINE 5% TOPICAL PATCH TP SCH (10:43)
[2017-09-14] MEDS: PRENATAL VITAMINS W/ FOLIC ACID TABLET (FP) PO SCH (10:43)
[2017-09-14] MEDS: ACETAMINOPHEN 325 MG TABLET (FP) PO PRN (10:44)
[2017-09-14] MEDS: NICOTINE POLACRILEX 4 MG GUM BUC PRN ×2 (10:45→15:11)
[2017-09-14] MEDS: QUEtiapine FUMARATE 100 MG TABLET (FP) PO SCH (21:36)
[2017-09-14] MEDS: LIDOCAINE PATCH REMOVAL MC SCH (21:37)
[2017-09-14] MEDS: THIAMINE HCL 100 MG TABLET (FP) PO SCH (21:37)
[2017-09-15] MEDS: GABAPENTIN 400 MG CAPSULE (FP) PO SCH ×3 (06:20→21:38)
[2017-09-15] MEDS: IBUPROFEN 400 MG TABLET (FP) PO PRN ×3 (06:20→21:38)
[2017-09-15] MEDS: PRENATAL VITAMINS W/ FOLIC ACID TABLET (FP) PO SCH (10:31)
[2017-09-15] MEDS: LIDOCAINE 5% TOPICAL PATCH TP SCH (10:31)
[2017-09-15] MEDS: NICOTINE POLACRILEX 4 MG GUM BUC PRN (10:32)
[2017-09-15] MEDS: QUEtiapine FUMARATE 100 MG TABLET (FP) PO SCH (21:38)
[2017-09-15] MEDS: THIAMINE HCL 100 MG TABLET (FP) PO SCH (21:38)
[2017-09-15] MEDS: LIDOCAINE PATCH REMOVAL MC SCH (21:39)
[2017-09-16] MEDS: GABAPENTIN 400 MG CAPSULE (FP) PO SCH ×3 (05:46→21:58)
[2017-09-16] MEDS: PRENATAL VITAMINS W/ FOLIC ACID TABLET (FP) PO SCH (10:27)
[2017-09-16] MEDS: LIDOCAINE 5% TOPICAL PATCH TP SCH (10:27)
[2017-09-16] MEDS: IBUPROFEN 400 MG TABLET (FP) PO PRN (10:28)
[2017-09-16] MEDS: NICOTINE POLACRILEX 4 MG GUM BUC PRN ×2 (10:29→21:59)
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
[2017-09-16] MEDS: THIAMINE HCL 100 MG TABLET (FP) PO SCH (21:58)
[2017-09-16] MEDS: QUEtiapine FUMARATE 100 MG TABLET (FP) PO SCH (21:58)
[2017-09-16] MEDS: LIDOCAINE PATCH REMOVAL MC SCH (21:59)
[2017-09-17] MEDS: GABAPENTIN 400 MG CAPSULE (FP) PO SCH (06:06)
[2017-09-17 06:50] VITALS: BP 120/83; PULSE 74; TEMP 97.7
[2017-09-17] MEDS: PRENATAL VITAMINS W/ FOLIC ACID TABLET (FP) PO SCH (09:52)
[2017-09-17] MEDS: LIDOCAINE 5% TOPICAL PATCH TP SCH (09:53)
== END 2017-09-17 10:00 | disposition home or self-care (01) | DRG 772 ==
LOC: YASAS 13:23 → Y5N 13:24
PROVIDERS: ADMIT Psychiatry & Neurology Psychiatry; ATTEND Psychiatry & Neurology Psychiatry
PROC: HZ42ZZZ Group Counseling for Substance Abuse Treatment, Cognitive-Behavioral (ICD-10-PCS; principal; 2017-09-03)
DX: F11.23 Opioid dependence with withdrawal (principal); F10.20 Alcohol dependence, uncomplicated; F14.20 Cocaine dependence, uncomplicated; F17.210 Nicotine dependence, cigarettes, uncomplicated; Z63.4 Disappearance and death of family member; F31.9 Bipolar disorder, unspecified; F43.10 Post-traumatic stress disorder, unspecified; F19.24 Other psychoactive substance dependence with psychoactive substance-induced mood disorder; B18.2 Chronic viral hepatitis C; M54.9 Dorsalgia, unspecified

== ENCOUNTER 2023-08-14 11:29 | Inpatient (IN) | payer OTHER ==
[2023-08-14 11:57] VITALS: BMI 26.2
[2023-08-14] MEDS ORDERED: NALOXONE HCL 0.4 MG/ML VIAL IM PRN (13:27)
[2023-08-14] MEDS ORDERED: BENZONATATE 200 MG CAPSULE PO PRN (13:27)
[2023-08-14] MEDS ORDERED: DICYCLOMINE HCL 10 MG CAPSULE PO PRN (13:27)
[2023-08-14] MEDS ORDERED: BISMUTH SUBSALICYLATE 524 MG/30 ML PO PRN (13:27)
[2023-08-14] MEDS ORDERED: BENZOCAINE/MENTHOL (CHLORASEPTIC ) LOZENGE MM PRN (13:27)
[2023-08-14] MEDS ORDERED: POLYETHYLENE GLYCOL (HEALTHYLAX) 3350 17 GM PACKET PO PRN (13:27)
[2023-08-14] MEDS ORDERED: MAGNESIUM HYDROX 2400MG/30ML ORAL SUSPENSION 30 ML CUP PO PRN (13:27)
[2023-08-14] MEDS ORDERED: ACETAMINOPHEN 325 MG TABLET (FP) PO PRN (13:27)
[2023-08-14] MEDS ORDERED: chlordiazePOXIDE HCL 25 MG CAPSULE PO PRN (13:27)
[2023-08-14] MEDS ORDERED: hydrOXYzine PAMOATE 25 MG CAPSULE (FP) PO PRN (13:27)
[2023-08-14] MEDS ORDERED: NALOXONE HCL (KLOXXADO) 8 MG SPRAY NS PRN (13:27)
[2023-08-14] MEDS ORDERED: guaiFENesin 600 MG TABLET.ER (FP) PO PRN (13:27)
[2023-08-14] MEDS ORDERED: IBUPROFEN 400 MG TABLET (FP) PO PRN (13:27)
[2023-08-14] MEDS ORDERED: IBUPROFEN 600 MG TABLET (FP) PO PRN (13:27)
[2023-08-14] MEDS ORDERED: NICOTINE 14 MG/24 HOURS TOPICAL PATCH TD ONE (15:25)
[2023-08-14] MEDS: NICOTINE 14 MG/24 HOURS TOPICAL PATCH TD SCH (15:30)
[2023-08-14] MEDS: THIAMINE 100 MG TABLET PO SCH (22:19)
[2023-08-14] MEDS: MELATONIN 5 MG TABLETS PO SCH (22:20)
[2023-08-14] MEDS: chlordiazePOXIDE HCL 25 MG CAPSULE PO SCH (22:20)
[2023-08-15] MEDS ORDERED: methaDONE HCL 10 MG TABLET PO SCH (06:00)
[2023-08-15] MEDS: PRENATAL VITAMINS W/ FOLIC ACID TABLET (FP) PO SCH (10:19)
[2023-08-15] MEDS ORDERED: NICOTINE 14 MG/24 HOURS TOPICAL PATCH TD PRN (10:42)
[2023-08-15] MEDS: NICOTINE POLACRILEX 2 MG GUM BC PRN (10:59)
[2023-08-15] MEDS: ONDANSETRON *ODT* 4 MG TABLET SL PRN (11:00)
[2023-08-15 11:49] LABS: HEMATOCRIT 35.2 % (35.4-49); HEMOGLOBIN 12.1 GM/dL (11.7-16.9); MCHC 34.4 g/dl (32.0-35.9); MEAN CELL VOLUME 84.2 fl (80-96); MEAN PLT VOLUME 11.3 fl (7.5-11.1); PLATELET COUNT 200 10^3/uL (134-434); RBC 4.18 M/mm3 (4.00-5.60); RDW 13.5 % (11.9-15.9); WHITE BLOOD COUNT 6.1 K/mm3 (4.0-10.0)
[2023-08-15 11:52] LABS: CALCIUM 8.5 mg/dL (8.5-10.1)
[2023-08-15 11:53] LABS: ALBUMIN 3.5 g/dl (3.4-5.0); BLOOD UREA NITROGEN 13.9 mg/dL (7-18)
[2023-08-15 11:57] LABS: BILIRUBIN,TOTAL 0.5 mg/dL (0.2-1)
[2023-08-15] MEDS: QUEtiapine FUMARATE 100 MG TABLET (FP) PO SCH (22:06)
[2023-08-15] MEDS: LACTULOSE 20 GM/30 ML UDC (FOR ORAL USE ONLY) PO SCH (22:06)
[2023-08-16] MEDS: chlordiazePOXIDE HCL 25 MG CAPSULE PO SCH (05:51)
[2023-08-16] MEDS: MAG HYDROX/AL HYDROX/SIMETH 30 ML UNIT-DOSE CUP PO PRN (22:36)
[2023-08-17] MEDS ORDERED: chlordiazePOXIDE HCL 10 MG CAPSULE PO PRN
[2023-08-17] MEDS: chlordiazePOXIDE HCL 10 MG CAPSULE PO SCH (05:30)
[2023-08-17] MEDS: LOPERAMIDE HCL 2 MG CAPSULE PO PRN (05:33)
[2023-08-18] MEDS: chlordiazePOXIDE HCL 10 MG CAPSULE PO SCH (05:18)
[2023-08-18] MEDS: METHOCARBAMOL 500 MG TABLET PO PRN (17:26)
[2023-08-19] MEDS: chlordiazePOXIDE HCL 10 MG CAPSULE PO ONE (05:56)
[2023-08-19 07:14] VITALS: TEMP 98
[2023-08-19 09:20] VITALS: BP 109/65; PULSE 60; RESP 18
== END 2023-08-19 11:44 | disposition home or self-care (01) | DRG 773 ==
LOC: YASAS 11:29 → Y6N 13:48
PROVIDERS: ADMIT Allergy & Immunology; ATTEND Surgery
PROC: HZ2ZZZZ Detoxification Services for Substance Abuse Treatment (ICD-10-PCS; principal; 2023-08-14)
DX: F10.230 Alcohol dependence with withdrawal, uncomplicated (principal); F11.20 Opioid dependence, uncomplicated; F14.20 Cocaine dependence, uncomplicated; F12.20 Cannabis dependence, uncomplicated; F17.213 Nicotine dependence, cigarettes, with withdrawal; F25.9 Schizoaffective disorder, unspecified; F33.9 Major depressive disorder, recurrent, unspecified; F31.9 Bipolar disorder, unspecified; F43.10 Post-traumatic stress disorder, unspecified; F19.94 Other psychoactive substance use, unspecified with psychoactive substance-induced mood disorder; F19.982 Other psychoactive substance use, unspecified with psychoactive substance-induced sleep disorder; F19.980 Other psychoactive substance use, unspecified with psychoactive substance-induced anxiety disorder; E72.20 Disorder of urea cycle metabolism, unspecified; B18.2 Chronic viral hepatitis C; M54.59 Other low back pain; G89.29 Other chronic pain; G62.9 Polyneuropathy, unspecified; Z91.013 Allergy to seafood; Z62.810 Personal history of physical and sexual abuse in childhood; Z86.69 Personal history of other diseases of the nervous system and sense organs; Z56.0 Unemployment, unspecified
CPT/HCPCS: 36415; 80053; 80305; 80307; 82140; 85027; 86780; 93005; 93010; Q0162